=== PATIENT | male | born 1950 | race Caucasian/White ===

== ENCOUNTER → 2016-11-03 | Outpatient (CLI) | payer OTHER ==
[~2016-11-03] MED LIST: BUSPIRONE10 MG PO; CIPROFLOXACIN500 M4 PO; HCTZ-METOPROLOL1 TA2 PO; KLONOPIN0.5 MG PO; LISINOPRIL10 M1 PO; METFORMIN500 MG PO; METRONIDAZOLE500 M1 PO; TRAMADOL HCL50 MG PO; VENLAFAXINE150 MG PO; ZOCOR20 MG PO; ZOFRAN8 M1 PO
== END | disposition home or self-care (01) ==
LOC: US 08:53
DX: Z13.6 Encounter for screening for cardiovascular disorders (principal); I71.4 Abdominal aortic aneurysm, without rupture; E11.9 Type 2 diabetes mellitus without complications; I10 Essential (primary) hypertension

== ENCOUNTER → 2018-01-21 | Outpatient (CLI) | payer OTHER | END | disposition home or self-care (01) | LOC: RAD 12:08 | DX: R06.02 Shortness of breath (principal) ==

== ENCOUNTER 2018-04-11 07:40 | Inpatient (IN) | payer OTHER ==
[~2018-04-11] VITALS: Ht 177.8 cm; Wt 74.5 kg
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
--- NOTE | ~2018-04-11 | PR ---
[place], [place] PROGRESS NOTE NAME: CARMITA BOWMAN II UNIT #: [id number] ROOM: 508 DOCTOR: BROWN MEDINA MD BIRTHDATE: [birth year] DOS: 04/19/2018 CARDIOLOGY PROGRESS NOTE The patient is in room 503, bed 2. SUBJECTIVE: The patient was seen today, 04/19/2018, at his bedside. He is feeling better. He stated that this morning he did have a post-traumatic stress episode, which was associated with tachycardia, but resolved spontaneously. Subsequently, his heart rate returned to a well-controlled level. He denies any fevers or chills. He denies any chest discomfort. The patient's blood cultures have been identified as positive for methicillin-sensitive Staphylococcus aureus. As of this point, the source has not been found. PHYSICAL EXAMINATION: VITAL SIGNS: Today, his pulse was 80 and irregularly irregular. Blood pressure was 101/53. He is afebrile. NECK: Supple. He has no jugular distention. Carotids are full. Sclerae are clear and there are no scleral hemorrhages. His oral mucosa is moist. His tongue is midline. His neck is supple. There is no jugular distention. Carotids are full. LUNGS: Respirations are unlabored. His chest is clear to auscultation and percussion. HEART: Has an irregularly irregular rhythm without murmurs or gallops. ABDOMEN: Soft and normally active. EXTREMITIES: Nailbeds show no subungual hemorrhages. There are no embolic phenomena on his hands. IMPRESSIONS: 1. Newly documented atrial fibrillation with controlled ventricular response. 2. Mild elevation in troponin due to atrial fibrillation and rapid ventricular response with demand ischemia. 3. Traumatic hematoma of the right hip -- improving. 4. Chronic obstructive pulmonary disease. 5. Hypertension. 6. Type 2 diabetes mellitus. 7. Tobacco abuse. 8. Methicillin-sensitive Staphylococcus aureus on blood cultures. The source of this is not apparent. Infectious Disease consultation is pending. PLAN: We will continue his current cardiac medications and await the recommendations of the Infectious Disease specialist. I thank Dr. Schwarz for asking our advice regarding the patient's care. [place], [place] PROGRESS NOTE NAME: CARMITA BOWMAN II UNIT #: [id number] ROOM: 508 DOCTOR: BROWN MEDINA MD BIRTHDATE: [birth year] BROWN MEDINA MD CM:PNTRANS [id number] BROWN MEDINA MD 04/20/18 0619 interface
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
--- NOTE | ~2018-04-11 | PR ---
[place], [place] PROGRESS NOTE NAME: [facility] [id number] UNIT #: [id number] ROOM: 503 DOCTOR: STEFANI SOLIS MD BIRTHDATE: [birth year] DOS: 04/13/2018 SUBJECTIVE: The patient developed atrial fibrillation with rapid ventricular response with a heart rate of 170 beats per minute for which he was given a bolus of Cardizem and then infusion with titration. OBJECTIVE: GENERAL APPEARANCE: The patient is alert and oriented x 3, in no visible distress. VITAL SIGNS: Blood pressure 93/58, heart rate of 76 beats per minute, breathing 20 times per minute, temperature 98 degrees Fahrenheit. HEENT AND NECK: Exam within normal limits. CARDIOVASCULAR SYSTEM: Heart rate is regular in rate and rhythm. S1 and S2 normally audible. LUNGS: Clear to auscultation. ABDOMEN: Soft, nontender. No obvious organomegaly. Bowel sounds are present. EXTREMITIES: Without significant cyanosis or edema. IMPRESSION: 1. Paroxysmal atrial fibrillation with acute atrial fibrillation, now with rapid ventricular response of 170 beats per minute, has reduced now to 70-90 beats per minute, but still the patient's heart rate goes up when he ambulates. This was discussed with his office copy selector. The patient is already anticoagulated with Xarelto. The patient was also given digoxin IV 2 doses and then started on oral digoxin. The patient is still on diltiazem infusion and needs to be converted to oral. This was discussed with Dr. Luna who will take over his cardiology care today. 2. Type 2 diabetes mellitus, being treated with metformin and insulin. 3. Major depression, recurrent, mild, treated with venlafaxine and controlled. 4. Mixed hyperlipidemia, treated with simvastatin. 5. Vitamin D deficiency, replaced with supplements. 6. With a creatinine of 1.5, his metformin needs to be stopped and is being discontinued to decrease the risk of lactic acidosis. STEFANI SOLIS MD CM:PNTRANS [phone] STEFANI SOLIS MD 04/14/18 0334 interface
--- NOTE | ~2018-04-11 | PR ---
[place], [place] PROGRESS NOTE NAME: CARMITA BOWMAN II UNIT #: [id number] ROOM: 503 DOCTOR: BROWN MEDINA MD BIRTHDATE: [birth year] DOS: 04/15/2018 CARDIOLOGY PROGRESS NOTE SUBJECTIVE: The patient was seen at his bedside today, 04/15/2018, for followup of his newly documented atrial fibrillation. His heart remains out of rhythm, but it is controlled and not specifically tachycardic. He denies any palpitations, lightheadedness or syncope. He still has considerable pain in his right hip, but it is getting better. PHYSICAL EXAMINATION: VITAL SIGNS: His pulse is 90 and irregularly irregular. Blood pressure is 100/50. He is afebrile. NECK: Supple. He has no jugular distention. Carotids are full. LUNGS: Respirations are unlabored. Chest is clear. HEART: Has an irregularly irregular rhythm without murmurs or gallops. ABDOMEN: Benign. EXTREMITIES: Showed no edema. IMPRESSION: 1. Newly documented atrial fibrillation with controlled ventricular response. 2. Mild elevation in troponin due to atrial fibrillation, rapid ventricular rate prior to admission. 3. Traumatic hematoma of the right hip -- improving. 4. Chronic obstructive pulmonary disease. 5. Hypertension. 6. Type 2 diabetes mellitus. 7. Tobacco abuse. PLAN: We will continue to manage him with rate control and anticoagulation for the present. No further cardiac workup is planned at this time. His recent stress test did show a fixed defect with normal overall left ventricular systolic function, was a low-risk study. We will continue his current medications and follow him as needed. I thank Dr. Murray for asking our advice regarding his care. [place], [place] PROGRESS NOTE NAME: CARMITA BOWMAN II UNIT #: [id number] ROOM: 503 DOCTOR: BROWN MEDINA MD BIRTHDATE: [birth year] BROWN MEDINA MD CM:PNTRANS [phone] BROWN MEDINA MD 04/16/18207 interface
--- NOTE | ~2018-04-11 | PR ---
[place], [place] PROGRESS NOTE NAME: CARMITA BOWMAN II UNIT #: [id number] ROOM: 508 DOCTOR: MARIA ELENA PLATT MD BIRTHDATE: [birth year] DOS: 04/20/2018 NO DICTATION Maria Elena Platt MD CM:PNTRANS [phone] MARIA ELENA PLATT MD 06/01/18 0546 interface
--- NOTE | ~2018-04-11 | PR ---
[place], [place] PROGRESS NOTE NAME: CARMITA BOWMAN II UNIT #: [id number] ROOM: 503 DOCTOR: MAIA RODRIGUEZ MD BIRTHDATE: [birth year] DOS: 04/18/2018 SUBJECTIVE: The patient is resting comfortably, family members visiting. PHYSICAL EXAMINATION: GENERAL: He is awake and alert and oriented, in no distress. VITAL SIGNS: Graphic trend shows a pressure of 92/65, pulse of 80, respirations 16, temperature 97.6. LUNGS: Diminished breath sounds, clear. HEART: Irregular. ABDOMEN: Obese, soft. EXTREMITIES: Without any edema. LABORATORY DATA: Urine culture shows no bacterial growth. Digoxin level is 0.96. Blood cultures, anaerobic shows gram-positive cocci in pairs and chains. IMAGING DATA: CT of the chest and abdomen does not show any evidence of acute infectious process. ASSESSMENT AND PLAN: 1. Hematoma of the right thigh seems to be improving clinically. It is much less red and less swollen and the size seems to be decreasing. 2. Adult failure to thrive. He was awaiting a placement to [place], but he is reluctant maybe go home with therapy. 3. Bacteremia with gram-positive cocci in pairs and chains, which is an aerobic study, awaiting final report on that. The patient may need a PICC line placement and continued antibiotics as an outpatient once we have the complete sensitivities. 4. Atrial fibrillation with rapid ventricular response, controlled. We should be able to discontinue the Cardizem and place him on p.o. meds. Dr. Conrad following. MAIA RODRIGUEZ MD CM:PNTRANS [phone] MAIA RODRIGUEZ MD 04/18/18 1600 interface
--- NOTE | ~2018-04-11 | PR ---
[place], [place] PROGRESS NOTE [id number] UN[facility] #: [id number] ROOM: 503 DOCTOR: MAIA RODRIGUEZ MD BIRTHDATE: [birth year] DOS: 04/19/2018 SUBJECTIVE: The patient is doing better, does not have any complaints today. OBJECTIVE: VITAL SIGNS: Graphic trend shows a pressure of 109/76, pulse of 105, respirations 18, temperature 97.8. LUNGS: Diminished breath sounds, clear. HEART: Irregular. ABDOMEN: Obese, soft. EXTREMITIES: Without any edema. LABORATORY DATA: Blood culture shows Staph aureus, which is in 2 different bottles, so this most likely is not a contaminant, was a true infection. Urine culture is negative. Chest x-ray negative. CT of the abdomen and pelvis as well as chest were negative. ASSESSMENT AND PLAN: 1. Hematoma of the right hip, resolving. 2. New onset atrial fibrillation. Heart rate controlled, on Xarelto, on Cardizem p.o. as well as metoprolol and therapeutic levels of digoxin. Stress test and echocardiogram was normal. 3. Sepsis with positive blood cultures with Staphylococcus aureus. Did receive vancomycin for several days. Repeat cultures today. The patient should be able to go home on a p.o. Levaquin tomorrow awaiting consultation with ID, so far no source of infection noted. 4. Chronic obstructive pulmonary disease with moderate cigarette smoker. 5. Generalized anxiety disorder, panic attacks with posttraumatic stress disorder. Some of his meds were discontinued because of his metabolic encephalopathy. Restart as needed. MAIA RODRIGUEZ MD CM:PNTRANS [phone] MAIA RODRIGUEZ MD 04/19/18 1101 interface
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
--- NOTE | ~2018-04-11 | EKG ---
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
--- NOTE | ~2018-04-11 | PR ---
[place], [place] PROGRESS NOTE NAME: [facility]MAN [id number] UNIT #: [id number] ROOM: 508 DOCTOR: MAIA RODRIGUEZ MD BIRTHDATE: [birth year] DOS: 04/22/2018 SUBJECTIVE: The patient is doing well, awaiting his SANJIV this morning. He does not have any complaints. OBJECTIVE: VITAL SIGNS: Pressure is 140/90, pulse of 90, respirations 16, temperature 98.3. LUNGS: Clear. HEART: Regular. ABDOMEN: Obese, soft, nontender. EXTREMITIES: Without any edema. Right hip site, decreased swelling and redness. ASSESSMENT AND PLAN: 1. Hematoma of the right hip, improving. 2. New-onset atrial fibrillation converted to sinus rhythm. 3. Bacteremia, Staphylococcus aureus, awaiting a SANJIV this morning, after that is done, the patient should be able to go home on p.o. antibiotics. Plan is to discharge him to home tomorrow. MAIA RODRIGUEZ MD CM:PNTRANS [id number] MAIA RODRIGUEZ MD 04/22/18 1240 interface
--- NOTE | ~2018-04-11 | EKG ---
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
--- NOTE | ~2018-04-11 | PR ---
[place], [place] PROGRESS NOTE NAME: CARMITA BOWMAN II [facility] #: [id number] UNIT #: [id number] ROOM: 508 DOCTOR: BROWN MEDINA MD BIRTHDATE: [birth year] DOS: 04/20/2018 CARDIOLOGY PROGRESS NOTE SUBJECTIVE: The patient was seen at his bedside today, 04/20/2018, for followup of his newly documented atrial fibrillation. He was initially admitted to the hospital on 04/11/2018 after a hip injury. He was noted to have an elevated troponin and while in the hospital did develop atrial fibrillation. This is probably the cause of the elevated troponin. He did develop signs of sepsis in the hospital and blood cultures were positive for methicillin-sensitive Staph aureus. I have discussed his care with his Infectious Disease senior compensation consultant and she has requested that we do a transesophageal echocardiogram to evaluate for the potential of endocarditis. Thus far, the patient has no peripheral findings to suggest endocarditis, but the SANJIV is a much more sensitive way of looking for vegetations. PHYSICAL EXAMINATION: VITAL SIGNS: Today his pulse is 82 and irregularly irregular, blood pressure is 142/80. He is afebrile. He weighs 74.5 kg. NECK: Supple. He has no jugular distention. Carotids are full. LUNGS: Respirations are unlabored. Chest is clear. HEART: Has an irregularly irregular rhythm without murmurs or gallops. ABDOMEN: Soft and normally active. EXTREMITIES: Showed no edema. He has no subungual hemorrhages or peripheral embolic phenomena. LABORATORY DATA: White count is 12,800, hemoglobin is 14.5. Sodium is 136, BUN 15 and creatinine 1.08. Urinalysis from April 12 showed 1+ protein and 3+ blood, but no white cells. IMPRESSION: 1. Newly documented atrial fibrillation with controlled ventricular response. 2. Mild elevation in troponin due to atrial fibrillation and demand ischemia. 3. Traumatic hematoma of the right hip, which is improving. 4. Chronic obstructive pulmonary disease. 5. Hypertension. 6. Type 2 diabetes mellitus. 7. Tobacco abuse. 8. Methicillin-sensitive Staphylococcus aureus on 2 blood cultures. Source is not yet apparent. Infectious Disease consultants have suggested that a SANJIV would be helpful in his ongoing management. PLAN: I did describe the SANJIV to the patient including the risk of sore throat, esophageal injury, vomiting and aspiration, anesthesia reactions, etc. The patient has had endoscopies before and is familiar with the general procedure and agrees to proceed. We will arrange for this to happen on 04/22/2018 with my partner, Dr. Luna since I will be out of town for [address] Schwarz for asking our advice regarding his care. [place], [place] PROGRESS NOTE NAME: CARMITA BOWMAN II UNIT #: [id number] ROOM: 508 DOCTOR: BROWN MEDINA MD BIRTHDATE: [birth year] BROWN MEDINA MD CM:PNTRANS [phone] 7 BROWN MEDINA MD 04/21/18918 interface
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
--- NOTE | ~2018-04-11 | PR ---
[place], [place] PROGRESS NOTE [id number] #: [id number] ROOM: 508 DOCTOR: MAIA RODRIGUEZ MD BIRTHDATE: [birth year] DOS: SUBJECTIVE: The patient states that his legs are hurting because he did too much yesterday walking, but he feels good and is not having any complaints. OBJECTIVE: VITAL SIGNS: Blood pressure is 112/62, pulse of 84, respirations 20, temperature 97.4. LUNGS: Diminished breath sounds, clear. HEART: Regular. ABDOMEN: Soft. EXTREMITIES: Without any edema. ASSESSMENT AND PLAN: 1. Positive blood cultures with Staph aureus. Awaiting SANJIV tomorrow. The patient should be able to go home tomorrow once the SANJIV is done on p.o. antibiotics. 2. Hematoma, right hip decreased swelling. 3. Atrial fibrillation, stable on medications. On long-term use of anticoagulants. 4. Adult failure to thrive. We will get this PT/OT and visiting nurses to see her fevers at home. MAIA RODRIGUEZ MD CM:PNTRANS [phone] MAIA RODRIGUEZ MD 04/21/18 1326 interface
--- NOTE | ~2018-04-11 | PR ---
[place], [place] PROGRESS NOTE NAME: CARMITA BOWMAN II UNIT #: [id number] ROOM: 503 DOCTOR: MAIA RODRIGUEZ MD BIRTHDATE: [birth year] DOS: 04/17/2018 SUBJECTIVE: The patient is resting comfortably, much more awake and alert and oriented this morning, answers questions appropriately. He is no longer confused, but he did develop rapid AFib this morning and was placed back on IV Cardizem. OBJECTIVE: VITAL SIGNS: Graphic trend shows a pressure of 118/82, pulse of 120, respirations 16, and temperature 98.6. LUNGS: Clear. HEART: Irregular, heart rate in the low 90s right now. ABDOMEN: Obese, soft. EXTREMITIES: Without any edema. ASSESSMENT AND PLAN: 1. Atrial fibrillation with rapid ventricular response. IV Cardizem was restarted. 2. Low grade fever with lactic acidosis with possible sepsis pattern. Blood cultures did come back positive for gram-positive cocci in pairs and clusters and 2 cultures. This may be a true infection, may not be a contamination, So I have added vancomycin to the regimen. 3. Change in mental status, metabolic encephalopathy, possibly from sepsis as well as multiple medications, which were all discontinued yesterday, and he is much more lucid today. 4. Adult failure to thrive, awaiting placement when he is much more stable. Discussed with Dr. Conrad. MAIA RODRIGUEZ MD CM:PNTRANS [id number] MAIA RODRIGUEZ MD 04/18/18 1103 interface
--- NOTE | ~2018-04-11 | PR ---
[place], [place] PROGRESS NOTE [facility]: [id number] UN[facility] #: [id number] ROOM: 508 DOCTOR: MAIA RODRIGUEZ MD BIRTHDATE: [birth year] DOS: SUBJECTIVE: The patient is up and about walking around. He does feel good and is not having any new complaints. OBJECTIVE: VITAL SIGNS: Blood pressure is 137/86, pulse of 88, respirations 18, temperature 97.0. LUNGS: Diminished breath sounds. No wheezes, rales, rhonchi heard this morning. HEART: Regular. ABDOMEN: Obese, soft, nontender. EXTREMITIES: Without any edema. ASSESSMENT AND PLAN: 1. Atrial fibrillation, now converted to sinus rhythm this morning. I advised the patient that he could ambulate. 2. Hematoma of the right hip improving, it is much better since admission. There is decreased redness, swelling, and I do not think he needs to have any I and D performed. 3. Positive blood cultures of Staphylococcus aureus, on nafcillin. Awaiting SANJIV. Discussed with Dr. Conrad. If it is negative, the plan is to discharge the patient on Sunday to home on p.o. medications and PT, OT. 4. Posttraumatic stress disorder. Restarted BuSpar and venlafaxine to be continued. Avoid Klonopin if we can. MAIA RODRIGUEZ MD CM:PNTRANS [id number] MAIA RODRIGUEZ MD 04/20/18 1119 interface
--- NOTE | ~2018-04-11 | PR ---
[place], [place] PROGRESS NOTE [id number] #: [id number] ROOM: 503 DOCTOR: STEFANI SOLIS MD BIRTHDATE: [birth year] DOS: 04/15/2018 SUBJECTIVE: The patient continues to feel better. He underwent a cardiac stress test. OBJECTIVE: VITAL SIGNS: Blood pressure 99/53, heart rate 94 beats per minute, breathing 18 times per minute, temperature 98.2 degrees Fahrenheit. GENERAL APPEARANCE: The patient is alert and oriented x 3, in no visible distress. HEENT AND NECK: Exam within normal limits. CARDIOVASCULAR SYSTEM: Heart rate is regular in rate and rhythm. S1 and S2 normally audible. LUNGS: Clear to auscultation. ABDOMEN: Soft, nontender. No obvious organomegaly. Bowel sounds are present. EXTREMITIES: Without significant cyanosis or edema. IMPRESSION: 1. Patient with right hip hematoma and ecchymosis on his left flank area with stable hemoglobin at 13.8. 2. Paroxysmal atrial fibrillation with tachycardia, now improved on digoxin, diltiazem and metoprolol. Heart rates have improved and if he does not develop any significant tachycardia he can be discharged to home tomorrow by Dr. Schwarz. 3. Generalized anxiety disorder, treated and controlled with clonazepam. 4. Major depression, recurrent, treated and controlled with venlafaxine. 5. Mixed hyperlipidemia, treated with simvastatin. 6. Vitamin D deficiency, replaced with supplements. 7. Type 2 diabetes mellitus. Blood sugars are being monitored and treated. Metformin stopped because of creatinine of 1.5. STEFANI SOLIS MD CM:PNTRANS 1539 STEFANI SOLIS MD 04/16/184 interface
--- NOTE | ~2018-04-11 | PR ---
[place], [place] PROGRESS NOTE NAME: [id number] UNIT #: [id number] ROOM: 503 DOCTOR: STEFANI SOLIS MD BIRTHDATE: [birth year] DOS: 04/14/2018 SUBJECTIVE: The patient continues to feel better. OBJECTIVE: GENERAL APPEARANCE: The patient is alert and oriented x 3, in no visible distress. Generalized weakness. VITAL SIGNS: His blood pressure 107/70, heart rate of 82 beats per minute, breathing normally at 18 times per minute, temperature 98.3 degrees Fahrenheit. HEENT AND NECK: Exam within normal limits. CARDIOVASCULAR SYSTEM: Heart rate is regular in rate and rhythm. S1 and S2 normally audible. LUNGS: Clear to auscultation. ABDOMEN: Soft, nontender. No obvious organomegaly. Bowel sounds are present. EXTREMITIES: Right hip hematoma and some ecchymosis over his left flank. IMPRESSION: 1. The patient has hematoma of the right hip and ecchymosis in his left flank. Hemoglobin stable at 13.8. Mild leukocytosis. 2. Type 2 diabetes mellitus. Blood sugars are being monitored and treated. The patient's metformin stopped because of elevation of creatinine to 1.47 to avoid lactic acidosis. 3. Vitamin D deficiency, replaced with supplements. 4. Mixed hyperlipidemia, treated with simvastatin. 5. Major depression, recurrent, mild, treated and controlled with venlafaxine. 6. Paroxysmal atrial fibrillation, heart rates are better controlled, although he still had an episode of tachycardia this morning, Dr. Luna, the micro photographer is following him and he has been kept on digoxin and diltiazem CD now along with metoprolol. 7. Generalized anxiety, controlled with clonazepam. STEFANI SOLIS MD CM:PNTRANS [id number] STEFANI SOLIS MD 04/15/1828 interface
[2018-04-11 07:45] VITALS: BP 103/70
[2018-04-11 08:14] LABS: BASO % 0.1 % (0.0-1.0); EOS % 0.3 % (1.0-4.0); HEMATOCRIT 43.3 % (42.0-52.0); HEMOGLOBIN 15.3 g/dl (14.0-18.0); LYMPH # 0.9 10*3/uL (1.3-4.4); LYMPH % 6.6 % (27.0-41.0); MEAN CELL VOLUME 92.5 fl (80.0-94.0); MEAN CORPUSCULAR HGB 32.7 pg (27.0-31.0); MEAN CORPUSCULAR HGB CONC 35.3 g/dl (33.0-37.0); MEAN PLATELET VOLUME 9.6 fl (9.6-12.3); MONO # 1.3 10*3/uL (0.1-1.0); MONO % 9.3 % (3.0-9.0); NEUT # 11.5 10*3/uL (2.3-7.9); NEUT % 83.3 % (47.0-73.0); PLATELET COUNT AUTOMATED 254 10*3/uL (130-400); RED BLOOD COUNT 4.68 10*6/uL (4.50-5.90); WHITE BLOOD COUNT 13.8 10*3/uL (4.8-10.8)
[2018-04-11 08:26] LABS: ACT PARTIAL THROMBO TIME 26.5 SECONDS (20.8-31.5); INTERNATIONAL NORM RATIO 1.1 (2.0-3.5)
[2018-04-11 08:37] LABS: CREATININE 1.53 mg/dL (0.70-1.30); POTASSIUM 4.6 mmol/L (3.5-5.1)
[2018-04-11 08:41] LABS: TROPONIN I 0.063 ng/ml (<0.045)
[2018-04-11 09:15] VITALS: BP 97/62
--- NOTE | 2018-04-11 09:16 | NUR ---
REDNESS AND SOME EDEMA NON PITTING TO THE RIGHT HIP. STATES SLEPT ON IT FOR 3 HOURS LAST WEEK AND PAINS HAVE NOT GOT BETTER. PAIN TO TOUCH RADIATIND DOWN HIS LEFT RIGHT. CAP REFILL LESS THAN THREE SECONDS. WITNESSED GAIT STEADY TO ER COT FROM EMS COT. PT TOLD DR THAT HE HAS BEEN SOB AT HOME SINCE HIS PAIN. LS CLEAR AND DIMINSHED. NO DISTRESS NOTED. ELEVATED TWAVES ON THE MONITOR RADIAL HR 67. CALL MELGOZA IN REACH. BED LOCKED AND LOW. SIDE RALES UP TIMES TWO. NO DISTRESS NOTED.
--- NOTE | 2018-04-11 10:00 | NUR ---
A 67, admitted to 5E, under the services of MAIA Santos MD with a diagnosis of INABILITY TO AMBULATE, SOB, TRAUMATIC HEMATOMA R HIP, ELEVATED TROP/D-DIMER. Chief complaint is PAIN R HIP, SOB. Patient arrived via stretcher from ER. Monitor applied. Initial assessment completed. Vital signs taken and recorded. MAIA SANTOS MD notified of admission to the unit. Orders received. See assessment for past medical history, medications and allergies. Patient and/or family oriented to unit. [address] visitation policy reviewed. Clothing/patient valuable form completed. YOSELYN GOMEZ
[2018-04-11 10:15] VITALS: BP 116/83
[2018-04-11] MEDS ORDERED: MEGA RED PO (11:03)
[2018-04-11] MEDS ORDERED: ULTRAM50 MG PO (11:04)
[2018-04-11] MEDS ORDERED: VIT D3 PO (11:05)
[2018-04-11] MEDS ORDERED: ASPIRIN81 M1 PO (11:06)
[2018-04-11] MEDS ORDERED: SYMB80 INH (11:07)
--- NOTE | 2018-04-11 13:57 | NUR ---
MEDICATED WITH IV DILAUDID ORDERED PER PT REQUEST FOR C/O PAIN TO R POSTERIOR HIP FROM HEMATOMA RATED 5/10.
--- NOTE | 2018-04-11 15:00 | NUR ---
MEDICATION EFFECTIVE FOR PAIN.
[2018-04-11 16:00] VITALS: BP 129/81
[2018-04-11] MEDS ORDERED: HYDROCHLOROTHIA50 M1 PO (16:38)
--- NOTE | 2018-04-11 18:38 | NUR ---
MEDICATED WITH PO ULTRAM ORDERED PER PT REQUEST FOR C/O R POSTERIOR HIP PAIN RATED 4/10.
[2018-04-11 20:00] VITALS: BP 123/69
--- NOTE | 2018-04-11 21:55 | NUR ---
PATIENT MEDICATED WITH DILAUDID FOR COMPLAINTS OF RIGHT HIP PAIN. WILL CONTINUE TO MONITOR. CALL LIGHT IN REACH.
[2018-04-12] VITALS: BP 125/80
[2018-04-12 06:23] LABS: BASO % 0.2 % (0.0-1.0); HEMATOCRIT 42.1 % (42.0-52.0); HEMOGLOBIN 13.8 g/dl (14.0-18.0); LYMPH # 0.8 10*3/uL (1.3-4.4); LYMPH % 6.4 % (27.0-41.0); MEAN CORPUSCULAR HGB 31.9 pg (27.0-31.0); MEAN CORPUSCULAR HGB CONC 32.8 g/dl (33.0-37.0); MEAN PLATELET VOLUME 9.9 fl (9.6-12.3); MONO # 0.5 10*3/uL (0.1-1.0); NEUT # 11.7 10*3/uL (2.3-7.9); NEUT % 88.6 % (47.0-73.0); PLATELET COUNT AUTOMATED 238 10*3/uL (130-400); RED BLOOD COUNT 4.33 10*6/uL (4.50-5.90); WHITE BLOOD COUNT 13.1 10*3/uL (4.8-10.8)
[2018-04-12 06:24] LABS: MEAN CELL VOLUME 97.2 fl (80.0-94.0)
[2018-04-12 06:32] LABS: CREATININE 1.47 mg/dL (0.70-1.30); POTASSIUM 4.3 mmol/L (3.5-5.1)
--- NOTE | 2018-04-12 07:10 | NUR ---
PT AWAKE AND RESTING IN BED. PT STATES THAT HE HAS NO COMPLAINTS OF PAIN AT THIS TIME AND WAS WAITING ON BREAKFAST. CALL LIGHT WITHIN REACH, WILL CONTINUE TO MONITOR.
--- NOTE | 2018-04-12 07:52 | NUR ---
24 HR CHART CHECK COMPLETE.
[2018-04-12 08:00] VITALS: BP 112/66
--- NOTE | 2018-04-12 09:00 | NUR ---
Sheet Tailer in to talk to patient. Patient states lives at home with his . There are 18 steps in the home. Physician: Dr. Therese Schwarz Pharmacy: [facility] health services: none Patient's level of ADLs: INDEPENDENT Patient has working utilities: yes DME: nebulizer Follow-up physician's appointment after d/c: he prefers to make his own follow up appt after discharge Does patient want to access PORTAL?: no Discharge plan discussed with patient. He lives at home with his . He is independent in his ADLs and ambulation. Discussed home health care services and he denies any home needs at this time. When medically stable he will be discharged to home. CHAPINCITO HUERTA
--- NOTE | 2018-04-12 09:30 | NUR ---
DR MEDINA NOTIFIED OF EKG SHOWING NEW ONSET AFIB. HE WILL ADDRESS IT LATER AFTER THE METOPROLOL HAS TAKEN AFFECT.
--- NOTE | 2018-04-12 10:34 | NUR ---
LEAVING VIA WHEELCHAIR FOR CARDIAC REHAB.
--- NOTE | 2018-04-12 11:30 | NUR ---
INFORMED SIGNED CONSENT OBTAINED FOR LEXISCAN STRESS TEST [facility] DR MEDINA. RESTING EKG AFIB WITH PVC, Q WAVE IN -V4 HR 133 BP 168/78. PT COMPLETED ONE MINUTE OF A LEXISCAN PROTOCOL WITH PT RECEIVING LEXISCAN 0.4MG IV OVER 10 SECONDS. OCCASSIONAL PVC'S WITH COUPLETS SEEN. NO ST CHANGES. PT C/O A WARM FEELING WITH INFUSION. LAST RECOVERY HR OF 130 BP 134/76. PT IN STABLE CONDITION. AWAITNG NUCLEAR IMAGES.
--- NOTE | 2018-04-12 13:00 | NUR ---
PT RETURNED TO THE FLOOR FROM CARDIAC STRESS TEST.
--- NOTE | 2018-04-12 13:06 | NUR ---
PT ADMINISTERED PRN DILAUDID FOR COMPLAINTS OF PAIN 11/26. WILL CONTINUE TO MONITOR.
--- NOTE | 2018-04-12 13:56 | NUR ---
PT STATES THAT THE PRN DILAUDID HAS HELPED WITH HIS PAIN AND HE NOW RATES IT A 1/10. WILL CONTINUE TO MONITOR
--- NOTE | 2018-04-12 15:50 | NUR ---
DR SOLIS NOTIFIED OF INCREASING HR INTO THE 170s/AFIB, NEW ORDERS RECEIVED.
[2018-04-12 16:00] VITALS: BP 111/75; BP 98/64
--- NOTE | 2018-04-12 16:28 | NUR ---
PHYSICIAN WAS NOTIFIED OF DR. CALDWELL CONSULT. RESPONSE OF NOTIFICATION WAS TO CONTINUE CURRENT MEDICATIONS HE HAS JUST SEEN HER AT [facility]. LEÓN SELLERS
--- NOTE | 2018-04-12 16:29 | NUR ---
DR. CALDWELL CONSULTED FOR CHF AND PROLONGED QT INTERVAL. DR. CALDWELL STATES THAT HE DOES NOT HAVE ANY FURTHER SUGGESTIONS FOR THIS PATIENT AT THIS TIME AND THAT SHE IS TO CONTINUE HER CURRENT MEDICATIONS HE HAS JUST SEEN HER YESTERDAY. DR. CALDWELL ALSO STATED THAT FROM HIS STAND POINT THIS PATIENT IS CLEARED TO GO TO [facility] AT ANYTIME.
[2018-04-12 18:01] VITALS: BP 117/59
[2018-04-12 20:00] VITALS: BP 106/70
[2018-04-12 20:54] LABS: BILIRUBIN NEGATIVE (NEGATIVE); BLOOD 3+ (NEGATIVE); CLARITY SL CLOUDY (CLEAR); COLOR YELLOW (YELLOW); GLUCOSE 2+ (NEGATIVE); KETONE NEGATIVE (NEGATIVE); LEUKO ESTERASE NEGATIVE (NEGATIVE); NITRITE NEGATIVE (NEGATIVE); PH 5.5 (5.0-9.0); SPECIFIC GRAVITY >= 1.030 (1.005-1.030); UROBILINOGEN 0.2 E.U./dl (0.2-1.0)
[2018-04-12 20:59] LABS: BACTERIA 2+; WBC 0-2 wbc/hpf (0-5)
[2018-04-12 21:00] LABS: CALCIUM OXALATE CRYSTALS TRACE; COARSE GRANULAR CAST 0-2; MUCOUS TRACE
--- NOTE | 2018-04-12 21:56 | NUR ---
PATIENT MEDICATED WITH DILAUDID FOR COMPLAINTS OF RIGHT HIP/BUTTOCKS PAIN. WILL CONTINUE TO MONITOR. CALL LIGHT IN REACH.
[2018-04-12 22:00] VITALS: BP 110/68
[2018-04-13] VITALS: BP 107/69
--- NOTE | 2018-04-13 01:15 | NUR ---
DR. SOLIS NOTIFIED OF PATIENT'S HEART RATE RANGING FROM 60'S-80'S AND STILL IN A-FIB. NEW ORDER FOR CARDIZEM CD 120MG NOW AND THEN STOP CARDIZEM DRIP ONE HOUR AFTER PO CARDIZEM GIVEN.
--- NOTE | 2018-04-13 02:35 | NUR ---
CARDIZEM DRIP STOPPED AT THIS TIME.
[2018-04-13 04:00] VITALS: BP 107/69
[2018-04-13 08:00] VITALS: BP 110/78
[2018-04-13 12:00] VITALS: BP 95/82
[2018-04-13 16:00] VITALS: BP 93/58
--- NOTE | 2018-04-13 18:00 | NUR ---
DR QUESADA IN TO SEE PT. PER HIS REQUEST BILATERAL HIP BRUISES OUTLINED WITH MARKER.
[2018-04-13 20:00] VITALS: BP 103/73; BP 106/74
--- NOTE | 2018-04-13 23:32 | NUR ---
24 HR chart check completed.
[2018-04-14] VITALS: BP 108/56
--- NOTE | 2018-04-14 04:30 | NUR ---
PATIENT PULLED IV OUT. NEW IV INSERTED PER PROTOCOL.
[2018-04-14 08:00] VITALS: BP 98/62
--- NOTE | 2018-04-14 08:00 | NUR ---
Patient resting quietly with no c/o discomfort. Respirations easy and regular. Marker outlines to bilateral hips are intact with no changes noted. IVF infusing per orders. Vital signs stable. No overt distress. MILEY GERMAN R
[2018-04-14 12:00] VITALS: BP 100/68
[2018-04-14 16:00] VITALS: BP 107/70
[2018-04-14 16:32] LABS: BASO % 0.2 % (0.0-1.0); EOS # 0.1 10*3/uL (0.0-0.4); EOS % 0.8 % (1.0-4.0); HEMATOCRIT 40.9 % (42.0-52.0); HEMOGLOBIN 13.8 g/dl (14.0-18.0); LYMPH # 1.5 10*3/uL (1.3-4.4); LYMPH % 11.7 % (27.0-41.0); MEAN CELL VOLUME 96.5 fl (80.0-94.0); MEAN CORPUSCULAR HGB 32.5 pg (27.0-31.0); MEAN CORPUSCULAR HGB CONC 33.7 g/dl (33.0-37.0); MEAN PLATELET VOLUME 9.4 fl (9.6-12.3); NEUT # 10.1 10*3/uL (2.3-7.9); NEUT % 78.1 % (47.0-73.0); PLATELET COUNT AUTOMATED 247 10*3/uL (130-400); RED BLOOD COUNT 4.24 10*6/uL (4.50-5.90); RED CELL DISTRI WIDTH 13.3 % (0-14.5)
[2018-04-14 20:00] VITALS: BP 110/71; BP 118/68; BP 138/78
--- NOTE | 2018-04-14 20:44 | NUR ---
24 HR chart check completed.
[2018-04-15] VITALS: BP 100/72
--- NOTE | 2018-04-15 02:46 | NUR ---
PATIENT REQUESTING MEDICATION FOR RIGHT HIP PAIN. TRAMADOL ADMINISTERED PRESCRIBED. WILL MONITOR FOR EFFECTIVENESS.
--- NOTE | 2018-04-15 03:46 | NUR ---
PATIENT RESTING QUIETLY WITH EYES CLOSED. RESPERS EASY AND UNLABORED. CALL MELGOZA WITHIN REACH WILL MONITOR.
[2018-04-15 08:00] VITALS: BP 112/64
--- NOTE | 2018-04-15 09:00 | NUR ---
Architectural Wood Model Maker in to see patient. Discussed home needs and he requested a walker for home. Notified Dr. Murray. When medically stable he will be discharged to home.
--- NOTE | 2018-04-15 11:56 | NUR ---
Daughter requested assistance with household items. [facility] Resource Guide pamphlet given to patient.
[2018-04-15 12:00] VITALS: BP 99/53
--- NOTE | 2018-04-15 14:59 | NUR ---
Faxed walker prescription to [facility].
[2018-04-15 16:00] VITALS: BP 101/73
[2018-04-15 20:00] VITALS: BP 117/72; BP 120/72
--- NOTE | 2018-04-15 20:00 | NUR ---
DAUGHTER EXPRESSING CONCERN ABOUT FATHER GOING HOME, STATING THAT HE HAS BEEN HAVING A HARD TIME GETTING AROUND. WOULD LIKE PT TO WORK WITH HIM AND PT AT HOME IS POSSIBLE.
--- NOTE | 2018-04-15 20:20 | NUR ---
PATIENT REQUESTING PAIN MEDICATION FOR RIGHT HIP PAIN RATED 8/10 ON 0/10 SCALE. DILAUDID ADMINISTERED PRESCRIBED. WILL MONITOR FOR EFFECTIVENESS.
--- NOTE | 2018-04-15 20:50 | NUR ---
PATIENT STATES THAT RIGHT HIP PAIN IS 5/10 AFTER ADMINISTRATION OF DILAUDID. WILL MONITOR.
--- NOTE | 2018-04-15 23:00 | NUR ---
REPORT OBTAINED FROM RICHARD RYDER. PT IS RESTING IN BED AT THIS TIME WITH HIS EYES CLOSED. THERE ARE NO SIGNS OR SYMPTOMS OF PAIN OR DISCOMFORT NOTED. NORMAL SALINE IS RUNNING INTO LT ARM IV @ 60ML/HR WITH A CREDIT OF 200mL LEFT. RESPIRATIONS ARE EASY AND UNLABORED. BED IS LOCKED AND IN LOWEST POSITION, CALL LIGHT IS WITHIN REACH.
[2018-04-16] VITALS: BP 124/84
--- NOTE | 2018-04-16 06:37 | NUR ---
PA APPROACHED RN REGARDING PT ON LAYING ON THE FLOOR IN HALLWAY. RN TO SEE PT. PT STATES HE LOWERED HIMSELF TO THE GROUND AND WAS IN THE HALLWAY BECAUSE IT WAS TOO HOT IN HIS ROOM. HE DENIES FALLING AND/OR ANY INJURIES. PT ASSISTED TO BACK TO BED. ASSESSMENT COMPLETE, VITAL SIGNS STABLE. PT IS ALERT AND ORIENTED X3. DR. SOLIS NOTIFIED OF SITUATION, NO NEW ORDERS RECIEVED. YELLOW NON SKID SOCKS APPLIED, FALL RISK BAND APPLIED, BED ALARM ON. WILL CONTINUE TO MONITOR, CALL LIGHT WITHIN REACH.
[2018-04-16 07:45] VITALS: BP 106/72
[2018-04-16 08:45] VITALS: BP 126/69
--- NOTE | 2018-04-16 08:59 | NUR ---
MEDICATED WITH PRN IV DILAUDID FOR RIGHT HIP HEMATOMA AREA PAIN.
--- NOTE | 2018-04-16 09:00 | NUR ---
Social Media Senior Associate in to see patient. No new needs or request at this time. He denies any home needs. Informed walker prescription was sent to [facility]. When medically stable he will be discharged to home.
--- NOTE | 2018-04-16 09:26 | NUR ---
PRN IV DILAUDID EFFECTIVE FOR PAIN, PER PATIENT.
--- NOTE | 2018-04-16 10:02 | NUR ---
0845 Pulse rate 111 bpm reported to RN Martin and patient reported R hip pain 9 on 0-10 scale also reported to Martin RN. Will continue to monitor. Call light in reach, bed in low, clear pathways, bed alarm on. [address]
--- NOTE | 2018-04-16 10:37 | NUR ---
PATIENT ASSISTED TO STANDING POSITION TO USE URINAL, HAVING MUCH PAIN WITH MOVEMENT TO THE RIGHT HIP.
--- NOTE | 2018-04-16 10:45 | NUR ---
MEDICATED WITH PRN PO ULTRAM FOR RIGHT HIP PAIN.
[2018-04-16 11:50] VITALS: BP 113/70
--- NOTE | 2018-04-16 11:56 | NUR ---
PRN PO ULTRAM EFFECTIVE, PER PATIENT.
--- NOTE | 2018-04-16 13:37 | NUR ---
HR CURRENTLY AFIB/IRREGULAR RATE 70'S WITH FREQUENT 1-2 SECOND PAUSES. PATIENT REMAINS DROWSY BUT ORIENTED, REPORTS NO SYMPTOMS.
--- NOTE | 2018-04-16 14:29 | NUR ---
Discussed with patient short term SNF as Dr. Schwarz requested. His is at the bedside and patient and agree on SNF and would like patient to go to [facility] as that is where the works. Notified associate financial planner.
--- NOTE | 2018-04-16 14:45 | NUR ---
Patient requesting referral to the [facility], contacted facility and faxed initial referral. Patient unable to go to [facility] due to insurance being out of network. Only facility in network with [facility] advantage is [facility] in [place]. Notified CM Lucy muniz.
--- NOTE | 2018-04-16 14:57 | NUR ---
[facility] is out of network with patient's insurance. Spoke to patient and who is at the bedside and informed them Berry Vicente only pays at [facility] in [place]. They are agreeable. naval surface fire support planner notified.
--- NOTE | 2018-04-16 15:56 | NUR ---
Discussed with and daughter who are at the bedside regarding SNF at [facility]. Informed PT and OT evals will be completed tomorrow and a precert will have to be started. It could be or Sunday. , Noris, home phone # [phone] and cell # [phone].
[2018-04-16 16:00] VITALS: BP 124/54
[2018-04-16 20:00] VITALS: BP 94/57
--- NOTE | 2018-04-16 20:00 | NUR ---
PT RESTING IN BED DURING BEDSIDE SHIFT REPORT. FAMILY AT BEDSIDE. FAMILY STATES THAT PT HAS BEEN THIS WAY FOR SOME TIME. PT PALE, DIAPHORETIC, SKIN COOL TO TOUCH. BUE TWITCHING. PT LETHARGIC. DIFF TO AROUSE BUT DOES SO TO VERBAL STIMULI AND IS ALERT AND ORIENTED. BS 339. EXP WHEEZING NOTED W/POOR AIR EXCHANGE. SAT 90-93% RA. ON APPLIED VIA NC AT 2LPM. DR. RODRIGUEZ NOTIFIED W/N.O. RCVD FOR STAT ABG, CBC, BMP. WILL MONITOR PT CLOSELY. FAMILY REMAINS AT BEDSIDE.
[2018-04-16 20:27] LABS: ABG BASE EXCESS -0.3 mmol/L (-2.0-2.0); ABG HCO3 23.1 mmol/l (22-26); ABG O2 SATURATION 97.5 % (95-97); ARTERIAL BLOOD GAS PCO2 37.6 mmHg (35-45); ARTERIAL BLOOD GAS PH 7.411 (7.35-7.45); ARTERIAL BLOOD GAS PO2 89.6 mmHg (80-90)
[2018-04-16 20:31] LABS: BASO % 0.3 % (0.0-1.0); EOS # 0.1 10*3/uL (0.0-0.4); EOS % 0.8 % (1.0-4.0); HEMATOCRIT 38.8 % (42.0-52.0); HEMOGLOBIN 13.2 g/dl (14.0-18.0); LYMPH % 8.4 % (27.0-41.0); MEAN CELL VOLUME 95.6 fl (80.0-94.0); MEAN CORPUSCULAR HGB 32.5 pg (27.0-31.0); MEAN PLATELET VOLUME 9.4 fl (9.6-12.3); MONO % 8.3 % (3.0-9.0); NEUT # 9.6 10*3/uL (2.3-7.9); NEUT % 80.3 % (47.0-73.0); PLATELET COUNT AUTOMATED 264 10*3/uL (130-400); RED BLOOD COUNT 4.06 10*6/uL (4.50-5.90); RED CELL DISTRI WIDTH 13.6 % (0-14.5); WHITE BLOOD COUNT 11.9 10*3/uL (4.8-10.8)
[2018-04-16 20:46] LABS: BUN 18 mg/dl (7-24); CHLORIDE 98 mmol/L (98-107); CREATININE 1.12 mg/dL (0.70-1.30); SODIUM 132 mmol/L (136-145)
--- NOTE | 2018-04-16 21:00 | NUR ---
PT AWAKE IN BED AT THIS TIME. PT NO LONGER DIAPHORETIC OR SOB. COLOR IMPROVED. FAMILY NOTIFIED OF LAB RESULTS. WILL CONTINUE TO MONITOR PT. PT VOIDED IN URINAL. URINE MEDIUM YELLOW URINE. CALL LIGHT IN REACH.
--- NOTE | 2018-04-16 22:10 | NUR ---
DR. RODRIGUEZ CALLED FOR LAB RESULTS. LABS REVIEWED. NO N.O. RCVD AT THIS TIME.
[2018-04-17] VITALS (8 sets, daily range): BP systolic 98–148; BP diastolic 62–82
--- NOTE | 2018-04-17 | NUR ---
PT RESTING QUIETLY IN BED. ASSISTED TO STAND TO URINATE IN URINAL. PT SHAKY BUT OTHERWISE DENIES ANY C/O. NO FURTHER COOL/CLAMMY SKIN. HR IN 90'S, AFIB ON CM. ASSISTED BACK TO BED. CALL LIGHT IN REACH. BED IN LOW POSITION W/WHEELS LOCKED AND ALARM ON.
[2018-04-17 06:42] LABS: BASO % 0.2 % (0.0-1.0); EOS # 0.1 10*3/uL (0.0-0.4); EOS % 0.8 % (1.0-4.0); HEMATOCRIT 41.7 % (42.0-52.0); HEMOGLOBIN 13.7 g/dl (14.0-18.0); LYMPH # 0.7 10*3/uL (1.3-4.4); LYMPH % 7.8 % (27.0-41.0); MEAN CELL VOLUME 96.5 fl (80.0-94.0); MEAN CORPUSCULAR HGB 31.7 pg (27.0-31.0); MEAN CORPUSCULAR HGB CONC 32.9 g/dl (33.0-37.0); MEAN PLATELET VOLUME 9.5 fl (9.6-12.3); MONO # 0.6 10*3/uL (0.1-1.0); MONO % 6.5 % (3.0-9.0); NEUT # 7.9 10*3/uL (2.3-7.9); NEUT % 83.1 % (47.0-73.0); PLATELET COUNT AUTOMATED 269 10*3/uL (130-400); RED BLOOD COUNT 4.32 10*6/uL (4.50-5.90); RED CELL DISTRI WIDTH 13.5 % (0-14.5); WHITE BLOOD COUNT 9.5 10*3/uL (4.8-10.8)
--- NOTE | 2018-04-17 06:50 | NUR ---
IV started LALI with #22 angiocath after 0 attempts. The IV site was prepped with Chloraprep. Heparin lock attached. Sterile dressing applied. Patient tolerated precedure well. Procedure performed according to [facility] policy & procedure. RADHA DELCID
[2018-04-17 06:56] LABS: ALBUMIN 2.3 gm/dl (3.1-4.5); ALKALINE PHOSPHATASE 98 U/L (45-117); BUN 15 mg/dl (7-24); CHLORIDE 99 mmol/L (98-107); CREATININE 0.94 mg/dL (0.70-1.30); POTASSIUM 3.9 mmol/L (3.5-5.1); SGOT/AST 27 IU/L (3-35); SGPT/ALT 38 U/L (12-78); SODIUM 135 mmol/L (136-145); TOTAL PROTEIN 6.6 gm/dL (6.4-8.2)
--- NOTE | 2018-04-17 07:03 | NUR ---
CARADIZEM GTT INITIATED AT THIS TIME.
[2018-04-17 07:06] LABS: DIGOXIN 1.03 ng/ml (0.8-2.0)
--- NOTE | 2018-04-17 08:08 | NUR ---
24 HR CHART CHECK COMPLETE
--- NOTE | 2018-04-17 08:15 | NUR ---
DAUGHTER, JERALD PHONED TO GIVE UPDATE ON PT. MSG LEFT TO CALL HOSPITAL.
--- NOTE | 2018-04-17 08:40 | NUR ---
PHYSICAL THERAPY PAtient evaluated on 5, full evaluation to follow. Continue with PT as per plan of care with fall, c/o severe right buttock pain and acute debility precautions. will requrie SNF. PAtient is high complexity via chart review. tests and evaluation:93789. Thank you for this referral. Marilynn Fuchs,PT
--- NOTE | 2018-04-17 08:44 | NUR ---
Occupational Therapy evaluation completed on 5 with full eval to follow. Precautions include right hip hematoma, severe pain, assist w transfers and ADls, fall risk; bed alarm. Patient is moderate complexity level 03049 via chart review, testing and evalaution. Recommend OT per POC and SNF to enable return home at independent level. Thank you for this referral. Kenyatta Main OTr/L
--- NOTE | 2018-04-17 09:00 | NUR ---
Behavioral Health Tech in to see patient. No new needs or request at this time. When medically stable and precert is obtained he will be discharged to [facility]. digital media planner following.
--- NOTE | 2018-04-17 10:15 | NUR ---
LAB WITH CRITICAL BLOOD CULTURE RESULTS. CALLED DR RODRIGUEZ TO INFORM HER. ORDERS RECEIVED
--- NOTE | 2018-04-17 10:44 | NUR ---
PTS HEART RATE REMAINS 115-130 WITH CARDIZEM AT 10 ML/HR. INCREASED RATE TO 15 ML/HR. BP IS 130/80 MANUAL. WILL CONTINUE TO MONITOR
--- NOTE | 2018-04-17 11:31 | NUR ---
Patient agreeable to snf placement at the [facility] in [facility]. Contacted facility and faxed referral; will require precert.
--- NOTE | 2018-04-17 12:03 | NUR ---
[facility] returned call and stated they are unable to accept this patient, they have no available beds until late next week. Will follow.
--- NOTE | 2018-04-17 12:34 | NUR ---
Spoke to patient and who is at the bedside regarding [facility] being full, [facility] is full, and [facility] in [place] had openings. They are both agreeable to [facility]. works MWF and is hoping for a discharge on Sunday so she can be there with him. principal planner notified.
--- NOTE | 2018-04-17 12:55 | NUR ---
Contacted [facility] facility and faxed referral; waiting on review/acceptance.
[2018-04-18] VITALS (11 sets, daily range): BP systolic 92–125; BP diastolic 56–80
--- NOTE | 2018-04-18 04:53 | NUR ---
24 HR chart check completed.
--- NOTE | 2018-04-18 05:54 | NUR ---
TYLENOL GIVEN PER ORDER FOR PAIN RIGHT HIP AREA.
--- NOTE | 2018-04-18 06:50 | NUR ---
TYLENOL BECOMING EFFECTIVE FOR PAIN IN RIGHT HIP.
--- NOTE | 2018-04-18 08:19 | NUR ---
24 HR CHART CHECKS COMPLETE
--- NOTE | 2018-04-18 09:00 | NUR ---
Surgical Specialist in to see patient. Daughter is at the bedside. No new needs or request at this time. Discussed referral made to [facility] for short term SNF and all are agreeable. enterprise resource planner following. When medically stable and accepted he will bed discharged to [facility].
--- NOTE | 2018-04-18 10:03 | NUR ---
OT NOTE Pt was seen this A.M. 1:1 for 13 minute OT session. Upon arrival pt was supine in bed, pt identified by name and . Pt had reports of 8.5/10 R hip pain and presented to therapy with continous 2L-O2 via NC and IV treatment which he remained on throughout entire session. Pt's nurse Kellen had reports of elevated heart rate stating "he is okay to be treated just take it easy." At rest pt's heart rate was 88 bpm. Pt transferred supine to sit EOB with SBA. Pt completed multiple sit to stand transfers from bed level with CGA and use of w/w for UE support. Challenged pt's static/dynamic standing tolerance needed for increased I in self care tasks and functional transfers. First attempt completed while using w/w for UE support, pt was able to tolerate aprox 3 minutes before sitting due to fatigue. Second attempt made without UE support to challenged pt's dynamic standing tolerance and pt was able to tolerate aprox 2 minutes of unsupported stands. Educated pt on breathing techniques throughout to avoid SOB. Pt had fair carry over throughout session. Pt transferred back into bed sit to supine with SBA where he was left with call light in hand, tray table in place, and bed alarm activated for safety. Continue with rec D/C plan to SNF. STANFORD Voss
--- NOTE | 2018-04-18 12:36 | NUR ---
PHYSICAL THERAPY Patient presented to therapy in supine with 2 liters of spO2 via nasal canula. Patient had report of moderate pain in the R HIP/BUTOCK. Patient was identified by name and . Patient performed supine to sitting EOB transfer with SBA. Patient transferred STS with MIN A X 1. Patient performed standing tolerance at W/W AND THEN WITHOUT W/W for 3 minutes and 2 minutes respectively with SBA. Patient unable to ambulate due to R HIP PAIN. Patient then sat on EOB and performed seated bilateral LE THER EX 2 x 10 reps EACH in all planes of movement for strengthening the LEs in order to improve patient's functional mobility. Patient transferred back to supine in bed with CGA. Patient was left in supine position with head of bed elevated, call light within reach, and bed alarm activated. Patient was connected to wall outlet with 2 liters of spO2. Patient was 1:1 with this KEY FILER for 20 minutes total. YADIRA PORRAS KEY FILER
--- NOTE | 2018-04-18 14:58 | NUR ---
Spoke to regarding discharge planning. She is looking to see if she can become his aide at home. Information given for [facility]. The patient wants to go home with if she is able to be his paid aide and have home health care services. Instructed to let CM know which way they choose to go and verbalized an understanding.
--- NOTE | 2018-04-18 15:10 | NUR ---
Patient has received auth for [facility] in [place]. Patient is ok to go when medically stable for discharge. Notified Lucy software project manager.
--- NOTE | 2018-04-18 19:03 | NUR ---
CALLED ANSWERING SERVICE REGARDING NEW PT CONSULT FOR DR NELSON. WAITING 911 OPERATOR BACK
--- NOTE | 2018-04-18 23:56 | NUR ---
PATIENT REQUESTED AND RECIEVED PRN TYLENOL FOR HIP PAIN RATED AT A 7. WILL CONTINUE TO MONITOR FOR EFFECTIVENESS.
[2018-04-19] VITALS: BP 109/76
--- NOTE | 2018-04-19 00:30 | NUR ---
PATIENT SLEEPING. PRN TYLENOL CONSIDERED EFFECTIVE.
--- NOTE | 2018-04-19 07:38 | NUR ---
CONTACTED DR. RODRIGUEZ REGARDING + BLOOD CULTURES, NO NEW ORDERS AT THIS TIME.
--- NOTE | 2018-04-19 07:48 | NUR ---
pt resting in bed. no distress noted. will monitor
[2018-04-19 08:00] VITALS: BP 116/70
--- NOTE | 2018-04-19 09:00 | NUR ---
spoke with dr jackson regarding pt hr 100-130s no new orders at this time
--- NOTE | 2018-04-19 09:00 | NUR ---
Operating Room Surgical Technologist in to see patient. Discussed home health care services and he is agreeable. When given a list of agencies he chose [facility] as it is [facility] connected. When medically stable he will be discharged to home with [facility] home health services.
--- NOTE | 2018-04-19 09:08 | NUR ---
OT NOTE Attempted to see pt this A.M. for OT session and upon arrival pt's nurse Tracy had reported that pt's heart rate was elevated at this time requesting to hold pt. No treatment provided at this time. Will continue with POC as able. LISA Voss/Stevan
--- NOTE | 2018-04-19 09:26 | NUR ---
Spoke to Grace garza [place], , regarding home health care nurse and PT. Faxed referral. Start of care will be Sunday.
--- NOTE | 2018-04-19 09:34 | NUR ---
PHYSICAL THERAPY Patient reports PTSD symptoms and related tremors with anxiety. Patient is unable to participate in therapy at this time. Will check back later. YADIRA PORRAS METALS ANALYST
--- NOTE | 2018-04-19 09:34 | NUR ---
Spoke to Jose Alfredo at [facility], , regarding walker. Walker will be delivered today.
--- NOTE | 2018-04-19 09:40 | NUR ---
Spoke to patient regarding [facility] bringing his walker today to the hospital and David will see him on Sunday.
--- NOTE | 2018-04-19 09:40 | NUR ---
Spoke to patient regarding [facility] bringing his wheelchair today to the hospital and David will see him on Sunday.
--- NOTE | 2018-04-19 11:24 | NUR ---
Spoke to [facility]. Services of a nurse and PT will start on Sunday. Discussed with and informed Berry Vicente doesn't pay for an aide and she verbalized an understanding. Informed [facility] will deliver walker today and she verbalized an understanding.
[2018-04-19 11:44] LABS: BASO % 0.2 % (0.0-1.0); EOS % 0.3 % (1.0-4.0); HEMATOCRIT 43.8 % (42.0-52.0); HEMOGLOBIN 14.5 g/dl (14.0-18.0); LYMPH # 1.1 10*3/uL (1.3-4.4); LYMPH % 8.6 % (27.0-41.0); MEAN CELL VOLUME 96.7 fl (80.0-94.0); MEAN CORPUSCULAR HGB CONC 33.1 g/dl (33.0-37.0); MONO # 0.8 10*3/uL (0.1-1.0); MONO % 6.1 % (3.0-9.0); NEUT # 10.6 10*3/uL (2.3-7.9); NEUT % 83.5 % (47.0-73.0); PLATELET COUNT AUTOMATED 385 10*3/uL (130-400); RED BLOOD COUNT 4.53 10*6/uL (4.50-5.90); RED CELL DISTRI WIDTH 13.5 % (0-14.5); WHITE BLOOD COUNT 12.8 10*3/uL (4.8-10.8)
[2018-04-19 11:53] LABS: BUN 15 mg/dl (7-24); CHLORIDE 99 mmol/L (98-107); CREATININE 1.08 mg/dL (0.70-1.30); SODIUM 136 mmol/L (136-145)
[2018-04-19 12:00] VITALS: BP 101/53
[2018-04-19 16:00] VITALS: BP 123/78
--- NOTE | 2018-04-19 17:37 | NUR ---
PT RESTING IN BED. NO DISTRESS NOTED. WILL MONITOR FAMILY AT BEDSIDE
[2018-04-19 20:00] VITALS: BP 126/83
--- NOTE | 2018-04-19 20:00 | NUR ---
PT RESTING IN BED WITH DAUGHTER AT HIS SIDE. RESP-EASY AND REGULAR. NO C/O AT THIS TIME. CALL LIGHT IN REACH.
--- NOTE | 2018-04-19 20:38 | NUR ---
CALLED DR. RODRIGUEZ REGARDING PT KLONOPIN AND BUSPAR. DAUGHTER WAS CONCERNED CAUSE HE HASN'T HAD HIS PTSD MEDICATIONS. DR. RODRIGUEZ ORDERED BUSPAR FOR NOW.
--- NOTE | 2018-04-19 21:20 | NUR ---
PT TOLERATED ROUTINE MEDS WITH NO PROBLEM. BSG-[id number], SEE EMAR. NO C/O AT THIS TIME. CALL LIGHT IN REACH.
--- NOTE | 2018-04-19 23:20 | NUR ---
PT REQUESTING PAIN MEDICATION FOR RIGHT HIP PAIN, RATES PAIN 8 ON PAIN SCALE 0-10. MEDICATED WITH TYLENOL PO PER PRN ORDER, SEE EMAR. CALL LIGHT IN REACH. SEE SHIFT ASSESSMENT.
[2018-04-20] VITALS: BP 137/86
--- NOTE | 2018-04-20 00:20 | NUR ---
RESTING IN BED WATCHING TV. STATES PAIN MEDICATION HELPS. CALL LIGHT IN REACH.
--- NOTE | 2018-04-20 04:00 | NUR ---
RESTING IN BED WITH EYES CLOSED. RESP-EASY AND REGULAR. CALL LIGHT IN REACH.
--- NOTE | 2018-04-20 05:40 | NUR ---
TOLERATED ROUTINE IV MEDICATION. BSG-176, SEE EMAR. NO C/O AT THIS TIME. CALL LIGHT IN REACH.
--- NOTE | 2018-04-20 07:25 | NUR ---
BEDSIDE REPORT OBTAINED FROM JACKSON-RIHCARD. PATIENT IS AWAKE AND ALERT, VO\ICED NO COMPLAINTS AT THIS TIME. NO S&S OF DISTRESS NOTED, RESP ARE ERND ON ROOM AIR. BED IS LOCKED IN LOWEST POSITION, ALARM MAINTAINED. CALL LIGHT LEFT WITHIN REACH.
[2018-04-20 08:00] VITALS: BP 116/68; BP 140/74
[2018-04-20 12:00] VITALS: BP 142/80
--- NOTE | 2018-04-20 12:22 | NUR ---
PHYSICAL THERAPY Patient seen this AM for his therapy session, supine in bed at time of arrival. Supine to sit; IL. STS from EOB to FWW with S followed by gait training with use of FWW and CGA/SBA for ~100'x2; seated rest break once destination reached-- cues for safety during directional changes and keeping SUE within walker. Seated B LE ther-ex 2x10 reps for LE strength, endurance and ROM: marches, LAQ, hip abd/add, ankle PF/DF and h/s curls-- intermittent rest breaks provided. DRUM BUILDER provided cues and supervision for technique and progression of exercises. Pt informed this DRUM BUILDER he feels "much better with no pain" this date. Pt sitting EOB at session end with present in room. Call light within reach. Gabrielle Snell DRUM BUILDER
[2018-04-20 16:00] VITALS: BP 123/74
[2018-04-20 20:00] VITALS: BP 152/87
--- NOTE | 2018-04-20 21:02 | NUR ---
24 HR chart check completed.
--- NOTE | 2018-04-20 22:11 | NUR ---
TYLENOL GIVEN PER ORDER FOR PAIN IN RIGHT HIP AREA. RATED "6"
--- NOTE | 2018-04-20 23:10 | NUR ---
TYLENOL EFFECTIVE FOR PAIN PER PT.
[2018-04-21] VITALS: BP 140/78
--- NOTE | 2018-04-21 04:26 | NUR ---
TYLENOL GIVEN PER ORDER FOR RIGHT HIP PAIN RATED "6" SEE MAR.
--- NOTE | 2018-04-21 07:35 | NUR ---
BEDSDIE REPORT OBTAINED FROM WALTER. PATIENT IS RESTING IN BED, EYES CLOSED. NO S&S OF DISTRESS NOTED, RESP ARE ERND ON ROOM AIR. BED IS LOCKED IN LOWEST POSITION. CALL LIGHT LEFT WITINF REACH.
[2018-04-21 07:37] LABS: BUN 14 mg/dl (7-24); CREATININE 0.94 mg/dL (0.70-1.30)
[2018-04-21 08:00] VITALS: BP 112/62; BP 152/86
[2018-04-21 12:00] VITALS: BP 134/72
[2018-04-21 16:00] VITALS: BP 126/86
[2018-04-21 20:00] VITALS: BP 156/84
--- NOTE | 2018-04-21 20:00 | NUR ---
patient resting in bed with no s/s of distress. watching tv. denies any needs at this time. bed in lowest position, call light in reach
--- NOTE | 2018-04-21 21:10 | NUR ---
MEDICATED WITH PRN TYLENOL FOR C/O RIGHT HIP PAIN RATED 8/10 ON A 0/10 PAIN SCALE
[2018-04-22] VITALS: BP 140/91
--- NOTE | 2018-04-22 04:15 | NUR ---
PT IS RESTING IN BED AT THIS TIME WITH HIS EYES CLOSED. THERE ARE NO CURRENT S/S OF PAIN OR DISCOMFORT AT THIS TIME. RESPIRATIONS ARE EASY AND UNLABORED ON ROOM AIR. BED IS IN LOWEST POSITION AND CALL LIGHT IS WITHIN REACH. WILL CONTINUE TO MONITOR PT.
[2018-04-22 07:12] LABS: BASO # 0.1 10*3/uL (0.0-0.1); BASO % 0.4 % (0.0-1.0); EOS # 0.3 10*3/uL (0.0-0.4); EOS % 1.8 % (1.0-4.0); HEMATOCRIT 45.5 % (42.0-52.0); HEMOGLOBIN 14.3 g/dl (14.0-18.0); LYMPH # 1.8 10*3/uL (1.3-4.4); LYMPH % 13.4 % (27.0-41.0); MEAN CELL VOLUME 99.6 fl (80.0-94.0); MEAN CORPUSCULAR HGB 31.3 pg (27.0-31.0); MEAN CORPUSCULAR HGB CONC 31.4 g/dl (33.0-37.0); MEAN PLATELET VOLUME 9.1 fl (9.6-12.3); MONO # 0.7 10*3/uL (0.1-1.0); NEUT # 10.6 10*3/uL (2.3-7.9); NEUT % 77.7 % (47.0-73.0); PLATELET COUNT AUTOMATED 404 10*3/uL (130-400); RED BLOOD COUNT 4.57 10*6/uL (4.50-5.90); RED CELL DISTRI WIDTH 13.6 % (0-14.5); WHITE BLOOD COUNT 13.7 10*3/uL (4.8-10.8)
[2018-04-22 07:15] LABS: POTASSIUM 4.9 mmol/L (3.5-5.1)
--- NOTE | 2018-04-22 07:15 | NUR ---
BEDSIDE REPORT OBTAINED FROM CHARY. PATIENT IS RESTING BED, EYES CLOSED. NO S&S OF DISTRESS NOTED, RESP ARE ERND ON ROOM AIR. BED IS LOCKED IN LOWEST POSITION, CALL LIGHT LEFT WITHIN REACH.
[2018-04-22 07:31] LABS: INTERNATIONAL NORM RATIO 1.1 (2.0-3.5)
[2018-04-22 08:00] VITALS: BP 138/84
--- NOTE | 2018-04-22 09:00 | NUR ---
Plastic Tile Layer in to see patient. No new needs or request at this time. When medically stable he will be discharged to home with [facility].
--- NOTE | 2018-04-22 10:41 | NUR ---
OT NOTE Attempted to see pt this A.M. for OT session and upon arrival pt had reports of "having no energy" from being NPO and 8/10 R hip pain. Requesting to be seen at a later time. Will continue with POC as able. LISA Voss/Stevan
[2018-04-22 11:24] VITALS: BP 136/87
[2018-04-22 12:46] VITALS: BP 119/68
--- NOTE | 2018-04-22 12:50 | NUR ---
OT NOTE Second attempt made to see pt this P.M. for OT session and upon arrival pt was out of his room for medical procedure. Will check back at a later time/date. LISA Voss/Stevan
[2018-04-22 13:01] VITALS: BP 124/78
[2018-04-22 13:16] VITALS: BP 129/77
--- NOTE | 2018-04-22 14:07 | NUR ---
PHYSICAL THERAPY Patient was going to medical procedure at 10:42 AM. Will check back later. YADIRA PORRAS POLYGRAPH OPERATOR
[2018-04-22] MEDS ORDERED: TOPROL XL100 MG PO (14:27)
[2018-04-22] MEDS ORDERED: LEVAQUIN750 M1 PO (14:27)
[2018-04-22] MEDS ORDERED: Lanoxin PO (14:27)
[2018-04-22] MEDS ORDERED: XARE20MG PO (14:27)
--- NOTE | 2018-04-22 14:34 | NUR ---
PHYSICAL THERAPY Patient is eating lunch at this time. Will check back at a later time. YADIRA PORRAS AUTOMOTIVE PARTS COUNTER ASSISTANT
--- NOTE | 2018-04-22 15:45 | NUR ---
Discharge instructions reviewed with patient/family. Patient receptive and verbalizes understanding. Follow-up care arranged. Written instructions given to patient/family. 2 IV CATH REMOVED, MONITOR ACCOUNTED FOR AND PLACED IN BIN. NO ADMITTING BELONGINGS LIST COMPLETED, PATIENT STATED HE COLLECTED ALL OF HIS BELONGINGS. RADHA DELCID
--- NOTE | 2018-04-23 07:45 | NUR ---
PHYSICAL THERAPY CO-SIGN I approve of the Phyical Therapy notes written above. KAREN GALAVIZ PT
--- NOTE | 2018-04-23 10:55 | NUR ---
Spoke to Jose E in pharmacy regarding Dalvanze for outpatient. Dalvanze would have to be ordered once we have an authorization for it. Spoke to [place] at [facility] regarding prior authorization. Authorization approved. Auth # [id number]. Spoke to Louis in pharmacy and Bette in central scheduling. Prescription faxed to pharmacy and central scheduling. Dr. Schwarz notified.
[2018-06-03] MEDS ORDERED: TRAMADOL HCL50 MG PO (11:13)
== END 2018-04-22 15:45 | disposition home health service (06) | DRG 871 ==
LOC: ED 07:40 → EDHOLD 09:31 → 5E 09:31
PROVIDERS: Emergency Medicine; Internal Medicine; Internal Medicine Cardiovascular Disease; Internal Medicine Critical Care Medicine; ADMIT Internal Medicine
PROC: 3E073KZ Introduction of Other Diagnostic Substance into Coronary Artery, Percutaneous Approach (ICD-10-PCS; principal; 2018-04-12)
PROC: 4A02XM4 Measurement of Cardiac Total Activity, External Approach (ICD-10-PCS; principal; 2018-04-12)
DX: A41.01 Sepsis due to Methicillin susceptible Staphylococcus aureus (principal); G93.41 Metabolic encephalopathy; I21.A1 Myocardial infarction type 2; N17.9 Acute kidney failure, unspecified; E87.1 Hypo-osmolality and hyponatremia; F33.9 Major depressive disorder, recurrent, unspecified; R74.8 Abnormal levels of other serum enzymes; F41.1 Generalized anxiety disorder; R62.7 Adult failure to thrive; S70.01XA Contusion of right hip, initial encounter; E11.65 Type 2 diabetes mellitus with hyperglycemia; F41.0 Panic disorder [episodic paroxysmal anxiety]; I25.10 Atherosclerotic heart disease of native coronary artery without angina pectoris; D64.9 Anemia, unspecified; G89.29 Other chronic pain; M54.9 Dorsalgia, unspecified; F17.210 Nicotine dependence, cigarettes, uncomplicated; E55.9 Vitamin D deficiency, unspecified; J43.9 Emphysema, unspecified; I10 Essential (primary) hypertension; I48.0 Paroxysmal atrial fibrillation; E78.5 Hyperlipidemia, unspecified; I35.1 Nonrheumatic aortic (valve) insufficiency; X58.XXXA Exposure to other specified factors, initial encounter; E87.8 Other disorders of electrolyte and fluid balance, not elsewhere classified; T50.2X5A Adverse effect of carbonic-anhydrase inhibitors, benzothiadiazides and other diuretics, initial encounter; F43.10 Post-traumatic stress disorder, unspecified; Y93.89 Activity, other specified; Y92.89 Other specified places as the place of occurrence of the external cause; Y99.8 Other external cause status; Z68.23 Body mass index [BMI] 23.0-23.9, adult; Z95.5 Presence of coronary angioplasty implant and graft; Z90.49 Acquired absence of other specified parts of digestive tract; Z80.41 Family history of malignant neoplasm of ovary; Z79.899 Other long term (current) drug therapy; Z79.82 Long term (current) use of aspirin

== ENCOUNTER 2018-05-16 15:14 | Emergency (ER) | payer OTHER ==
[~2018-05-16] VITALS: Ht 177.8 cm; Wt 74.4 kg
[~2018-05-16 15:14] MED LIST changes: +ASPIRIN81 M1 PO; +HYDROCHLOROTHIA50 M1 PO; +LEVAQUIN750 M1 PO; +Lanoxin PO; +MEGA RED PO; +SYMB80 INH; +TOPROL XL100 MG PO; +ULTRAM50 MG PO; +VIT D3 PO; +XARE20MG PO
[2018-05-16 15:53] LABS: BASO % 0.5 % (0.0-1.0); EOS # 0.3 10*3/uL (0.0-0.4); HEMATOCRIT 39.5 % (42.0-52.0); HEMOGLOBIN 12.6 g/dl (14.0-18.0); LYMPH # 1.8 10*3/uL (1.3-4.4); LYMPH % 22.1 % (27.0-41.0); MEAN CELL VOLUME 100.5 fl (80.0-94.0); MEAN CORPUSCULAR HGB 32.1 pg (27.0-31.0); MEAN CORPUSCULAR HGB CONC 31.9 g/dl (33.0-37.0); MEAN PLATELET VOLUME 9.1 fl (9.6-12.3); MONO % 11.9 % (3.0-9.0); NEUT % 61.3 % (47.0-73.0); PLATELET COUNT AUTOMATED 231 10*3/uL (130-400); RED BLOOD COUNT 3.93 10*6/uL (4.50-5.90); WHITE BLOOD COUNT 8.2 10*3/uL (4.8-10.8)
[2018-05-16 16:16] LABS: BUN 22 mg/dl (7-24); CHLORIDE 101 mmol/L (98-107); CREATININE 1.03 mg/dL (0.70-1.30); POTASSIUM 4.2 mmol/L (3.5-5.1); SODIUM 138 mmol/L (136-145)
[2018-05-16] MEDS ORDERED: SEPTDS PO (16:21)
[2018-06-03] MEDS ORDERED: TRAMADOL HCL50 MG PO (11:13)
== END 2018-05-16 16:15 | disposition home or self-care (01) ==
LOC: ED 15:14
PROVIDERS: Physician Assistant
DX: L02.415 Cutaneous abscess of right lower limb (principal); Z79.899 Other long term (current) drug therapy; Z87.891 Personal history of nicotine dependence

== ENCOUNTER 2018-05-20 12:22 | Inpatient (IN) | payer OTHER ==
[~2018-05-20] VITALS: Ht 177.8 cm; Wt 73.2 kg
--- NOTE | ~2018-05-20 | WRIGHTHP ---
[place], [place] PATIENT HISTORY AND PHYSICAL EXAM [id number] #: [id number] ROOM: 403 DOCTOR: MAIA RODRIUGEZ MD BIRTHDATE: [birth year] DOS: 05/20/2018 HISTORY OF PRESENT ILLNESS: This patient is 67 years old, who was admitted earlier this month for the hematoma of the right hip, who comes back into the Emergency Room on the with some discharge from the right hip area. The hematoma had actually gotten smaller last time I saw him, which was a week after hospital discharge. But this time when he presented on the , the patient stated that his swelling had gotten bigger and he was wearing a jeans, it rubbed on the area and caused a small abrasion and it was starting to drain. He decided to push on it and did get some more drainage and so, he decided to come into the Emergency Room. He was seen in the ER, was given Bactrim and sent home. At that time, there was no active drainage per the ER staff. He went home and came back yesterday to the office with increased drainage. He denies having any chest pains, palpitations or shortness breath. He does not have any fever or chills. Some minimal discomfort in the area. PAST MEDICAL HISTORY: Significant for; 1. Hematoma with hospitalization, discharged 04/22/2018. 2. Staphylococcus bacteremia. 3. Generalized anxiety disorder. 4. Chronic panic attacks. 5. Adult failure to thrive. 6. History of one episode of lone AFib. 7. Chronic back pain. 8. Posttraumatic stress disorder. MEDICATIONS: That he is currently on are Klonopin 0.5 b.i.d., BuSpar 20 t.i.d., Lanoxin 0.125 daily, metformin 500 b.i.d., metoprolol 100 daily, Xarelto 20 daily, simvastatin 10 daily, tramadol 50 b.i.d. p.r.n., venlafaxine 150 b.i.d. SOCIAL HISTORY: Smoker of about a half to 1 pack of cigarettes a day. Denies using any alcohol. PHYSICAL EXAMINATION: GENERAL: He is awake and alert and oriented, in no distress. VITAL SIGNS: Graphic trend shows a blood pressure of 130/60, pulse of 60, respirations 20, temperature 97.3. LUNGS: Clear. HEART: Regular. ABDOMEN: Soft. EXTREMITIES: No swelling. Right gluteal area, a large mass noted with an area in the middle, which is quite red and fluctuant and draining yellowish drainage. ASSESSMENT AND PLAN: 1. Abscess, right gluteal area. Ultrasound ordered. Surgical consultation obtained for possible I and D. IV antibiotics started. Wound cultures done. Routine blood work including ESR and CRP ordered. 2. Benign hypertension, controlled. 3. History of lone atrial fibrillation, was on anticoagulation, which are continued. [place], [place] PATIENT HISTORY AND PHYSICAL EXAM NAME: CARMITA BOWMAN II UNIT #: [id number] ROOM: 403 DOCTOR: MAIA RODRIGUEZ MD BIRTHDATE: [birth year] 4. Type 2 diabetes mellitus. Blood sugars to be checked. MAIA RODRIGUEZ MD CM:HISPHYS:PATIENT HISTORY AND PHYSICAL EXAMINATION [id number] MAIA RODRIGUEZ MD 05/21/18919 interface
--- NOTE | ~2018-05-20 | PR ---
[place], [place] PROGRESS NOTE NAME[id number] UNIT #: [id number] ROOM: 403 DOCTOR: MAIA RODRIGUEZ MD BIRTHDATE: [birth year] DOS: SUBJECTIVE: The patient is doing well. Appreciate Dr. Zhang's input. I and D was performed yesterday with serosanguineous fluid coming out, which was not purulent and so this does not appear to be an abscess, which is purely hematoma. OBJECTIVE: VITAL SIGNS: Blood pressure is 143/68, pulse is 66, respirations 20, temperature 98.3. LUNGS: Clear. HEART: Regular. ABDOMEN: Obese. EXTREMITIES: Without any edema. LABORATORY DATA: Blood cultures, no bacterial growth. Wound culture, no bacterial growth. Ultrasound of the area shows no abscess. ESR was only 60. CRP was 2.51. ASSESSMENT AND PLAN: Hematoma of the right gluteal area, which was starting to improve, but then became pretty large with some redness and drainage and a possibility of the abscess was raised and he was admitted. So far, there was no evidence of abscess. This appears to be just hematoma, which is draining. Dr. Zhang did do incision and drainage. The patient is stable. Visiting nurses will be consulted and the patient is advised to have the wound dressed daily and packed, visiting nurses will be consulted for that. The patient is on Bactrim, which is advised to continue taking as an outpatient until it is over. MAIA RODRIGUEZ MD CM:PNALIDA [id number] MAIA RODRIGUEZ MD 05/23/18 0139 interface
--- NOTE | ~2018-05-20 | DS ---
[place], [place] DISCHARGE SUMMARY [id number] #: [id number] ROOM: 403 DOCTOR: MAIA RODRIGUEZ MD BIRTHDATE: [birth year] DOS: 05/22/2018 DIAGNOSES: 1. Hematoma, right gluteal area, status post incision and drainage, ruled out abscess. 2. Recent history of Staphylococcus bacteremia. 3. Benign hypertension. 4. Lone atrial fibrillation. 5. Posttraumatic stress disorder with a history of panic attacks. 6. Generalized anxiety disorder. 7. Major depression, moderate, recurrent. 8. Type 2 diabetes mellitus. HOSPITAL COURSE: The patient is a 67-year-old with a known history of hematoma of the right hip, came back in with complaints of increased swelling with redness and drainage. Initial suspicion was this is an abscess. The patient was admitted. Ultrasound was ordered, which did not show any clear-cut fluid collection. The patient was placed on vancomycin and nafcillin. Wound cultures, blood cultures have all come back negative; therefore, the patient will be discharged to home today. Dr. Zhang already saw the patient. An I and D was performed and he does not think this is an abscess. The patient is stable and is not having any complaints. ESR and CRP were fairly on the low side. The patient was on Bactrim recently through the Emergency Room, which he still has at home. He is advised to continue with the prescription and complete the prescription. Visiting nurses will be consulted for daily dressings and packing with Aquacel and the patient will follow up with the wound clinic with Dr. Zhang. MAIA RODRIGUEZ MD CM:DISCHARG [id number] MAIA RODRIGUEZ MD 05/22/[id number] interface
[~2018-05-20 12:22] MED LIST changes: +SEPTDS PO
[2018-05-20 13:00] VITALS: BP 134/64
--- NOTE | 2018-05-20 13:00 | NUR ---
Time: 1300 A 67 year old MALE admitted to under services of MAIA SANTOS MD. Pt. arrived via wheel chair from ADM. Chief complaint: ABSCESS TO RIGHT HIP.. MARIA G BLISS
--- NOTE | 2018-05-20 13:36 | NUR ---
MEDS RECONCILED AT BEDSIDE WITH PT AND MED LIST PROVIDED.
--- NOTE | 2018-05-20 13:53 | NUR ---
NOTIFIED DR JO OF NEW CONSULT FOR RIGHT HIP WOUND.
[2018-05-20 14:54] LABS: BASO # 0.1 10*3/uL (0.0-0.1); BASO % 0.6 % (0.0-1.0); EOS # 0.3 10*3/uL (0.0-0.4); EOS % 3.4 % (1.0-4.0); HEMOGLOBIN 13.2 g/dl (14.0-18.0); LYMPH # 2.8 10*3/uL (1.3-4.4); LYMPH % 29.6 % (27.0-41.0); MEAN PLATELET VOLUME 9.5 fl (9.6-12.3); MONO # 1.1 10*3/uL (0.1-1.0); MONO % 11.2 % (3.0-9.0); NEUT # 5.1 10*3/uL (2.3-7.9); NEUT % 54.1 % (47.0-73.0); PLATELET COUNT AUTOMATED 273 10*3/uL (130-400); RED CELL DISTRI WIDTH 14.8 % (0-14.5); WHITE BLOOD COUNT 9.4 10*3/uL (4.8-10.8)
[2018-05-20 16:00] VITALS: BP 94/59
--- NOTE | 2018-05-20 16:02 | NUR ---
DR JO ROUNDED AND SEEN PT. DISCUSSED BEDSIDE DEBRIDEMENT POSSIBLY WITH PT TOMORROW DEPENDING ON POT RESPONSE TO ABX PER DR JO.ORDER RECIEVED.
--- NOTE | 2018-05-20 18:28 | NUR ---
DRESSING CHANGE TO RIGHT HIP COMPLETED PE RDR BOGEN'S ORDER.PT DRAINING COPIOUS AMOUNTS OF SEROUS/PURELENT DRAINAGE.
[2018-05-20 20:00] VITALS: BP 129/77
--- NOTE | 2018-05-20 21:45 | NUR ---
PATIENT RESTING IN BED. VOICES NO COMPLAINTS AT THIS TIME. HIP DRESSING INTACT. BED IN LOWEST POSITION, CALL LIGHT WITHIN REACH. WILL CONTINUE TO MONITOR.
--- NOTE | 2018-05-21 05:22 | NUR ---
GRACIE RODASCARMITA Celestin [id number] Please refer to the physician's history and physical for past medical history, comorbid conditions, and allergies. Diagnosis: ABSCES RT HIP & BUTTOCK Ind[place] Score: 21,LOW OR NO RISK WOUND DESCRIPTIONS: Location of the wound: Right hip Type of wound: abscess Thickness: Full Size: 1.3cm x 1.9cm x 1.8cm Tunneling: none Undermining: none Sinus Tract: none Presence of Exudate: Purulent Amount: Heavy Color: Yellow Odor: None Periwound Skin Appearance: Erythema Wound edges: approximated Pain (associated with wound): tender to touch How does patient state this happened? pt stated about 3-4 weeks ago he fell asleep with his conceal carry and woke and and took it off and was having pain from that time on. He stated he has came to this hospital on two other occasions and was sent home on antibiotic. Surface the patient is resting on: Isoflex SKIN PREVENTION RECOMMENDATION: 1. Pressure redistribution support surface as appropriate 2. Elevate heels 3. Remove boots/TEDS every shift and reapply 4. Head of bed 30 degrees as tolerated 5. Assess nutrition and hydration 6. Manage moisture 7. Avoid the use of containment devices while in bed 8. Use absorptive products on surfaces limit layers of linens on bed 9. Turn and reposition every 1-2 hours in bed and every 1 hour in chair as tolerated 10. Weight shifts every 15 minutes while up in chair 11. Offloading with pillows or device to keep heels elevated off bed 12. Monitor skin at least every shift 13. Inspect under medical devices twice a day WOUND TREATMENT RECOMMENDATIONS: Continue current dressing order per Dr. Zhang possible debridement needed.
[2018-05-21 08:00] VITALS: BP 126/79
--- NOTE | 2018-05-21 08:18 | NUR ---
DR RODRIGUEZ IN TO SEE PT. NEW ORDERS RECEIVED.
--- NOTE | 2018-05-21 08:40 | NUR ---
PT TO ULTRASOUND VIA WC.
--- NOTE | 2018-05-21 09:00 | NUR ---
Community Chest Officer in to talk to patient. Patient states lives at home with his . There are 18 steps in the home. Physician: Dr. Therese Schwarz [facility]: [facility] Home health services: none Patient's level of ADLs: INDEPENDENT Patient has working utilities: yes DME: [facility] Follow-up physician's appointment after d/c: he prefers to make his own follow up appt after discharge Does patient want to access PORTAL?: no Discharge plan discussed with patient. He lives at home with his . He is independent in his ADLs and ambulation. Discussed home health care services and he denies any home needs at this time. When medically stable he will be discharged to home. CHAPINCITO HUERTA
--- NOTE | 2018-05-21 09:05 | NUR ---
PT RETURNED FROM ULTRASOUND.
[2018-05-21 16:00] VITALS: BP 117/74
--- NOTE | 2018-05-21 18:06 | NUR ---
DR JO HERE TO DEBRIDE PT'S RIGHT HIP. PT TOLERATED PROCEDURE WELL.
[2018-05-21 20:00] VITALS: BP 143/68
--- NOTE | 2018-05-21 20:15 | NUR ---
UPDATED DR RODRIGUEZ ON PT'S CONDITION AND PLAN OF CAR POST DEBRIDEMENT. DR RODRIGUEZ STATED SHE WILL SEND PT HOME TOMORROW.
--- NOTE | 2018-05-22 04:52 | NUR ---
DRESSING TO RIGHT HIP CHANGED AT THIS TIME D/T SATURATION. PATIENT TOLERATED WELL. WILL CONTINUE TO MONITOR.
[2018-05-22 06:38] LABS: CREATININE 1.12 mg/dL (0.70-1.30)
[2018-05-22 08:00] VITALS: BP 139/80
--- NOTE | 2018-05-22 08:00 | NUR ---
IN TO SEE PATIENT.
--- NOTE | 2018-05-22 10:03 | NUR ---
Follow up in the wound care center 05/23/18 at 9:00am with Dr. Zhang.
--- NOTE | 2018-05-22 10:05 | NUR ---
PATIENT REFUSING DRESSING CHANGE AND PHOTO PER POLICY. PT JUST HAD DRESSING CHANGE THIS AM BY WOUND NURSE. WOUND CARE FOLLOW UP APT DISCUSSED WITH PATIENT. PT VERBALIZED UNDERSTANDING.
--- NOTE | 2018-05-22 10:11 | NUR ---
Discharge instructions reviewed with patient/family. Patient receptive and verbalizes understanding. Follow-up care arranged. Written instructions given to patient/family. DENI PORTER.
--- NOTE | 2018-05-22 10:56 | NUR ---
Spoke to Grace at [facility]. Patient is current with their therapy. Faxed demos and clinical. Grace stated they will restart nursing service tomorrow for dressing changes.
[2018-06-03] MEDS ORDERED: TRAMADOL HCL50 MG PO (11:13)
== END 2018-05-22 10:11 | disposition home health service (06) | DRG 580 ==
LOC: 4E 12:22
PROVIDERS: ADMIT Internal Medicine
PROC: 0HBHXZZ Excision of Right Upper Leg Skin, External Approach (ICD-10-PCS; principal; 2018-05-21)
PROC: 0J9L0ZZ Drainage of Right Upper Leg Subcutaneous Tissue and Fascia, Open Approach (ICD-10-PCS; 2018-05-21)
DX: S70.11XA Contusion of right thigh, initial encounter (principal); F33.1 Major depressive disorder, recurrent, moderate; I10 Essential (primary) hypertension; F41.1 Generalized anxiety disorder; F41.0 Panic disorder [episodic paroxysmal anxiety]; F43.10 Post-traumatic stress disorder, unspecified; I48.91 Unspecified atrial fibrillation; E11.9 Type 2 diabetes mellitus without complications; E66.9 Obesity, unspecified; F17.210 Nicotine dependence, cigarettes, uncomplicated; X58.XXXA Exposure to other specified factors, initial encounter; Y93.89 Activity, other specified; Y92.89 Other specified places as the place of occurrence of the external cause; Z68.23 Body mass index [BMI] 23.0-23.9, adult; Y99.8 Other external cause status; Z79.84 Long term (current) use of oral hypoglycemic drugs; Z79.899 Other long term (current) drug therapy

== ENCOUNTER → 2018-06-03 | Day surgery (SDC) | payer OTHER ==
[2018-05-31 09:53] LABS: BASO # 0.1 10*3/uL (0.0-0.1); BASO % 0.9 % (0.0-1.0); EOS # 0.3 10*3/uL (0.0-0.4); EOS % 3.5 % (1.0-4.0); HEMOGLOBIN 13.9 g/dl (14.0-18.0); LYMPH # 2.7 10*3/uL (1.3-4.4); LYMPH % 29.8 % (27.0-41.0); MEAN CELL VOLUME 101.4 fl (80.0-94.0); MEAN CORPUSCULAR HGB 32.8 pg (27.0-31.0); MEAN CORPUSCULAR HGB CONC 32.3 g/dl (33.0-37.0); MEAN PLATELET VOLUME 8.8 fl (9.6-12.3); MONO % 10.8 % (3.0-9.0); NEUT # 4.9 10*3/uL (2.3-7.9); NEUT % 53.9 % (47.0-73.0); PLATELET COUNT AUTOMATED 248 10*3/uL (130-400); RED BLOOD COUNT 4.24 10*6/uL (4.50-5.90); RED CELL DISTRI WIDTH 14.3 % (0-14.5); WHITE BLOOD COUNT 9.2 10*3/uL (4.8-10.8)
[2018-05-31 10:16] LABS: BUN 22 mg/dl (7-24); CHLORIDE 101 mmol/L (98-107); CREATININE 1.29 mg/dL (0.70-1.30); POTASSIUM 5.1 mmol/L (3.5-5.1); SODIUM 136 mmol/L (136-145)
[~2018-06-03] VITALS: Ht 177.8 cm; Wt 72.6 kg
[2018-06-03] VITALS (8 sets, daily range): BP systolic 71–125; BP diastolic 38–78
--- NOTE | ~2018-06-03 | EKG ---
[place], [place] ELECTROCARDIOGRAM REPORT NAME: CARMITA BOWMAN II UNIT #: [id number] ROOM: DOCTOR: EPIPHANY DRAFT REPORT BIRTHDATE: [birth year] [facility] Test Date: 2018-05-31 Test Time: 09:59:37 Pat Name: CARMITA BOWMAN Department: Room: Gender: M Councilor: Cassandra Ferreira : 1950 Requested By: EDIN JO Order Number: [id number] Reading MD: Ida Beasley MD Measurements Intervals Harman Rate: 55 P: 5 [place]: 165 QRS: 36 QRSD: 93 T: 52 QT: 391 QTc: 374 Interpretive Statements Sinus rhythm Atrial premature complex Anterior infarct, old Baseline wander in lead(s) V2 Compared to ECG 04/12/2018 09:38:25 Atrial premature complex(es) now present Atrial fibrillation no longer present Ventricular premature complex(es) no longer present Myocardial infarct finding still present Electronically Signed On 05-31-2018 10:01:07 PDT by Ida Beasley MD CM:EKGRPT:ELECTROCARDIOGRAM REPORT [id number] [facility] EDIN JO MD
== END | disposition home or self-care (01) ==
LOC: SDC 05-31 09:30
DX: S71.001A Unspecified open wound, right hip, initial encounter (principal); S70.11XA Contusion of right thigh, initial encounter; X58.XXXA Exposure to other specified factors, initial encounter; Y93.89 Activity, other specified; Y92.89 Other specified places as the place of occurrence of the external cause; Y99.8 Other external cause status; I25.2 Old myocardial infarction; I25.10 Atherosclerotic heart disease of native coronary artery without angina pectoris; L02.415 Cutaneous abscess of right lower limb; I10 Essential (primary) hypertension; F41.9 Anxiety disorder, unspecified; F32.9 Major depressive disorder, single episode, unspecified; E11.9 Type 2 diabetes mellitus without complications; Z72.89 Other problems related to lifestyle; Z87.891 Personal history of nicotine dependence; Z90.49 Acquired absence of other specified parts of digestive tract; Z98.890 Other specified postprocedural states; Z95.818 Presence of other cardiac implants and grafts; Z79.899 Other long term (current) drug therapy

== ENCOUNTER → 2018-06-22 | Outpatient (CLI) | payer OTHER | END | disposition home or self-care (01) | LOC: LAB 06-21 09:06 | DX: R19.7 Diarrhea, unspecified (principal) ==

== ENCOUNTER → 2018-08-01 | Outpatient (CLI) | payer OTHER | END | disposition home or self-care (01) | LOC: WOUNDCARE 02:11 | DX: S70.01XD Contusion of right hip, subsequent encounter (principal); S70.11XD Contusion of right thigh, subsequent encounter; L02.415 Cutaneous abscess of right lower limb; L92.8 Other granulomatous disorders of the skin and subcutaneous tissue; E11.9 Type 2 diabetes mellitus without complications; I10 Essential (primary) hypertension; E78.5 Hyperlipidemia, unspecified; I48.0 Paroxysmal atrial fibrillation; F43.10 Post-traumatic stress disorder, unspecified; Z87.891 Personal history of nicotine dependence; X58.XXXD Exposure to other specified factors, subsequent encounter ==

== ENCOUNTER → 2019-01-07 | Outpatient (CLI) | payer OTHER | END | disposition home or self-care (01) | LOC: RAD 11:47 | DX: M43.17 Spondylolisthesis, lumbosacral region (principal); M47.817 Spondylosis without myelopathy or radiculopathy, lumbosacral region; M51.37 Other intervertebral disc degeneration, lumbosacral region; M85.88 Other specified disorders of bone density and structure, other site ==

== ENCOUNTER → 2019-04-15 | Outpatient (CLI) | payer OTHER | END | disposition home or self-care (01) | LOC: RAD 12:22 | DX: R06.02 Shortness of breath (principal) ==

== ENCOUNTER → 2019-12-26 | Outpatient (CLI) | payer OTHER ==
[2019-12-26 12:56] LABS: BASO % 0.5 % (0.0-1.0); EOS # 0.4 10*3/uL (0.0-0.4); EOS % 5.2 % (1.0-4.0); HEMATOCRIT 43.9 % (42.0-52.0); LYMPH # 1.5 10*3/uL (1.3-4.4); LYMPH % 18.5 % (27.0-41.0); MEAN CORPUSCULAR HGB 31.4 pg (27.0-31.0); MEAN PLATELET VOLUME 9.5 fl (9.6-12.3); MONO # 0.7 10*3/uL (0.1-1.0); MONO % 9.2 % (3.0-9.0); NEUT # 5.2 10*3/uL (2.3-7.9); NEUT % 66.1 % (47.0-73.0); PLATELET COUNT AUTOMATED 233 10*3/uL (130-400); RED BLOOD COUNT 4.62 10*6/uL (4.50-5.90); RED CELL DISTRI WIDTH 13.2 % (0-14.5); WHITE BLOOD COUNT 7.9 10*3/uL (4.8-10.8)
[2019-12-26 13:14] LABS: ALBUMIN 3.4 gm/dl (3.1-4.5); ALKALINE PHOSPHATASE 118 U/L (45-117); BUN 19 mg/dl (7-24); CHLORIDE 103 mmol/L (98-107); CHOLESTEROL 98 mg/dL (<200); CREATININE 1.22 mg/dL (0.70-1.30); HDL CHOLESTEROL 38 mg/dl (40-60); LDL CHOLESTEROL 34 mg/dL (9-159); POTASSIUM 3.8 mmol/L (3.5-5.1); SGOT/AST 43 IU/L (3-35); SGPT/ALT 36 U/L (12-78); SODIUM 136 mmol/L (136-145); TRIGLYCERIDES 128 mg/dl (<150); VLDL CHOLESTEROL 26 mg/dL (6-40)
[2019-12-26 13:19] LABS: FREE T4 0.83 ng/dl (0.76-1.46)
[2019-12-26 13:49] LABS: VITAMIN D, 25-HYDROXY 87.6 ng/mL (30-100)
== END | disposition home or self-care (01) ==
LOC: LAB 12:24
PROVIDERS: ATTEND Internal Medicine
DX: Z12.5 Encounter for screening for malignant neoplasm of prostate (principal); I10 Essential (primary) hypertension; E11.9 Type 2 diabetes mellitus without complications; E55.9 Vitamin D deficiency, unspecified; E78.2 Mixed hyperlipidemia; Z00.00 Encounter for general adult medical examination without abnormal findings

== ENCOUNTER → 2020-05-27 | Outpatient (CLI) | payer OTHER | END | disposition home or self-care (01) | LOC: CARD 09:25 | PROVIDERS: ATTEND Internal Medicine | DX: R07.9 Chest pain, unspecified (principal) ==

== ENCOUNTER → 2021-02-07 | Outpatient (CLI) | payer OTHER | END | disposition home or self-care (01) | LOC: US 02-03 13:00 → CARD 02-03 14:00 → US 09:30 | PROVIDERS: ATTEND Internal Medicine | DX: R06.02 Shortness of breath (principal); I35.1 Nonrheumatic aortic (valve) insufficiency; R42 Dizziness and giddiness; I65.23 Occlusion and stenosis of bilateral carotid arteries ==

== ENCOUNTER → 2021-02-21 | Outpatient (CLI) | payer OTHER ==
[~2021-02-21] MED LIST changes: +GLIMEPIRIDE2 MG PO; +LOSARTAN POTASS25 M1 PO; +NATURE'S BLEND F1 MG PO; +XARELTO10 MG PO
== END | disposition home or self-care (01) ==
LOC: CARD 04:36
PROVIDERS: ATTEND Internal Medicine
DX: R07.9 Chest pain, unspecified (principal); R53.81 Other malaise

== ENCOUNTER → 2021-05-10 | Outpatient (CLI) | payer OTHER ==
[2021-05-10 13:00] LABS: BASO % 0.5 % (0.0-1.0); EOS # 0.4 10*3/uL (0.0-0.4); HEMATOCRIT 44.4 % (42.0-52.0); LYMPH # 1.9 10*3/uL (1.3-4.4); LYMPH % 22.8 % (27.0-41.0); MEAN CELL VOLUME 95.5 fl (80.0-94.0); MEAN CORPUSCULAR HGB CONC 32.4 g/dl (33.0-37.0); MEAN PLATELET VOLUME 9.8 fl (9.6-12.3); MONO # 1.1 10*3/uL (0.1-1.0); MONO % 12.5 % (3.0-9.0); NEUT # 4.9 10*3/uL (2.3-7.9); NEUT % 58.7 % (47.0-73.0); PLATELET COUNT AUTOMATED 204 10*3/uL (130-400); RED BLOOD COUNT 4.65 10*6/uL (4.50-5.90); RED CELL DISTRI WIDTH 13.2 % (0-14.5); WHITE BLOOD COUNT 8.4 10*3/uL (4.8-10.8)
[2021-05-10 13:17] LABS: ALKALINE PHOSPHATASE 114 U/L (45-117); BUN 23 mg/dl (7-24); CHLORIDE 101 mmol/L (98-107); CHOLESTEROL 85 mg/dL (<200); CREATININE 1.17 mg/dL (0.70-1.30); FREE T4 0.72 ng/dl (0.76-1.46); LDL CHOLESTEROL 16 mg/dL (9-159); POTASSIUM 4.8 mmol/L (3.5-5.1); SGOT/AST 30 IU/L (3-35); SGPT/ALT 30 U/L (12-78); SODIUM 136 mmol/L (136-145); TOTAL PROTEIN 7.8 gm/dL (6.4-8.2); TRIGLYCERIDES 160 mg/dl (<150)
[2021-05-10 14:04] LABS: VITAMIN D, 25-HYDROXY 63.9 ng/mL (30-100)
== END ==
LOC: LAB 12:26
PROVIDERS: ATTEND Internal Medicine
DX: Z12.5 Encounter for screening for malignant neoplasm of prostate (principal); I10 Essential (primary) hypertension; E11.9 Type 2 diabetes mellitus without complications; E55.9 Vitamin D deficiency, unspecified; E83.52 Hypercalcemia; E78.2 Mixed hyperlipidemia; Z00.00 Encounter for general adult medical examination without abnormal findings

== ENCOUNTER → 2022-01-24 | Outpatient (CLI) | payer OTHER | LOC: RAD 09:36 | PROVIDERS: ATTEND Internal Medicine | DX: J43.9 Emphysema, unspecified (principal) ==

== ENCOUNTER → 2022-03-02 | Outpatient (CLI) | payer OTHER | END | disposition home or self-care (01) | LOC: RAD 11:43 | PROVIDERS: ATTEND Internal Medicine | DX: J43.9 Emphysema, unspecified (principal); M41.84 Other forms of scoliosis, thoracic region ==

== ENCOUNTER → 2023-05-07 | Outpatient (CLI) | payer OTHER ==
[~2023-05-07] MED LIST changes: +KRILL OIL500 MG PO
== END | disposition home or self-care (01) ==
LOC: US 02:59
PROVIDERS: ATTEND Internal Medicine
DX: N40.0 Benign prostatic hyperplasia without lower urinary tract symptoms (principal)

== ENCOUNTER → 2023-06-05 | Outpatient (CLI) | payer OTHER ==
[2023-06-05 10:15] LABS: BASO # 0.1 10*3/uL (0.0-0.1); BASO % 0.5 % (0.0-1.0); EOS # 0.6 10*3/uL (0.0-0.4); HEMATOCRIT 42.4 % (42.0-52.0); LYMPH # 2.3 10*3/uL (1.3-4.4); LYMPH % 24.9 % (27.0-41.0); MEAN CELL VOLUME 93.4 fl (80.0-94.0); MEAN CORPUSCULAR HGB 27.5 pg (27.0-31.0); MEAN CORPUSCULAR HGB CONC 29.5 g/dl (33.0-37.0); MEAN PLATELET VOLUME 9.3 fl (9.6-12.3); MONO # 0.9 10*3/uL (0.1-1.0); MONO % 9.4 % (3.0-9.0); NEUT # 5.5 10*3/uL (2.3-7.9); NEUT % 58.8 % (47.0-73.0); PLATELET COUNT AUTOMATED 258 10*3/uL (130-400); RED BLOOD COUNT 4.54 10*6/uL (4.50-5.90); RED CELL DISTRI WIDTH 14.5 % (0-14.5); WHITE BLOOD COUNT 9.4 10*3/uL (4.8-10.8)
[2023-06-05 10:42] LABS: ALKALINE PHOSPHATASE 95 U/L (46-116); BUN 22 mg/dl (9-23); CHLORIDE 102 mmol/L (98-107); POTASSIUM 4.6 mmol/L (3.4-5.1); SGPT/ALT 9 U/L (5-49); TOTAL PROTEIN 7.6 gm/dL (6.0-8.0)
[2023-06-05 15:20] LABS: BILIRUBIN Negative (Negative); BLOOD 3+ (Negative); CLARITY Clear (Clear); COLOR Yellow (Yellow); GLUCOSE 3+ (Negative); KETONE Negative (Negative); LEUKO ESTERASE Negative (Negative); NITRITE Negative (Negative); PH 5.5 (4.5-8.0); SPECIFIC GRAVITY >= 1.030 (1.001-1.030)
[2023-06-05 15:49] LABS: MUCOUS TRACE; RBC 51-100 rbc/hpf (0-2)
[2023-06-11 22:05] LABS: FREE PSA 1.047 ng/mL (.)
== END | disposition home or self-care (01) ==
LOC: LAB 09:50
PROVIDERS: ATTEND Urology
DX: N42.9 Disorder of prostate, unspecified (principal)

== ENCOUNTER 2023-06-26 12:12 | Inpatient (IN) | payer OTHER ==
[~2023-06-26] VITALS: Ht 177.8 cm; Wt 70.0 kg
[2023-06-26 12:33] VITALS: BP 110/78
[2023-06-26] MEDS ORDERED: methylPREDNISolone sod succ 125 MG VIAL IV ONE (12:45)
[2023-06-26] MEDS ORDERED: Albuterol Sulf/Ipratropium 3 ML VIAL NEB ONE (12:45)
[2023-06-26 12:53] LABS: BASO # 0.1 10*3/uL (0.0-0.1); BASO % 0.8 % (0.0-1.0); EOS # 1.1 10*3/uL (0.0-0.4); EOS % 12.1 % (1.0-4.0); HEMATOCRIT 44.8 % (42.0-52.0); LYMPH # 2.1 10*3/uL (1.3-4.4); LYMPH % 23.2 % (27.0-41.0); MEAN CELL VOLUME 91.6 fl (80.0-94.0); MEAN CORPUSCULAR HGB CONC 30.6 g/dl (33.0-37.0); MEAN PLATELET VOLUME 9.9 fl (9.6-12.3); MONO % 10.8 % (3.0-9.0); NEUT # 4.7 10*3/uL (2.3-7.9); NEUT % 52.9 % (47.0-73.0); PLATELET COUNT AUTOMATED 232 10*3/uL (130-400); RED BLOOD COUNT 4.89 10*6/uL (4.50-5.90); RED CELL DISTRI WIDTH 14.7 % (0-14.5); WHITE BLOOD COUNT 8.9 10*3/uL (4.8-10.8)
[2023-06-26 13:16] LABS: BUN 20 mg/dl (9-23); CHLORIDE 101 mmol/L (98-107); POTASSIUM 4.4 mmol/L (3.4-5.1)
[2023-06-26] MEDS ORDERED: Ceftriaxone Sodium 1 GM/10 ML SYR IV ONE (14:00)
[2023-06-26] MEDS ORDERED: AZITHROMYCIN 250 ML IV ONE (14:00)
[2023-06-26 16:30] VITALS: BP 139/86
[2023-06-26] MEDS ORDERED: VENLAFAXINE HY150 M2 PO (17:58)
[2023-06-26] MEDS ORDERED: GLIMEPIRIDE4 M1 PO (18:00)
[2023-06-26] MEDS ORDERED: JARDIANCE10 MG PO (18:09)
[2023-06-26] MEDS ORDERED: PROAIR DIGIHAL90 MCG INH (18:13)
[2023-06-26] MEDS ORDERED: Albuterol Sulf/Ipratropium 3 ML VIAL NEB PRN (20:05)
[2023-06-26] MEDS ORDERED: DEXTROSE 10 % IN WATER 250 ML IV PRN (20:05)
[2023-06-26 21:44] VITALS: BP 135/71
[2023-06-26] MEDS ORDERED: clonAZEPAM 1 MG TAB PO SCH (22:00)
[2023-06-26] MEDS ORDERED: INSULIN REGULAR, HUMAN 1 UNIT/0.01 ML SC SCH (22:00)
[2023-06-26] MEDS ORDERED: Venlafaxine Hydrochloride 75 MG CAP PO SCH (22:00)
[2023-06-26] MEDS ORDERED: SIMVASTATIN 20 MG TAB PO SCH (22:00)
[2023-06-26] MEDS ORDERED: methylPREDNISolone sod succ 40 MG VIAL IV SCH (22:00)
[2023-06-26] MEDS ORDERED: GUAIFENESIN 600 MG TAB ER PO SCH (22:00)
[2023-06-26 23:42] VITALS: BP 145/85
[2023-06-27] MEDS ORDERED: GLIMEPIRIDE 2 MG TAB PO SCH (07:30)
[2023-06-27 08:00] VITALS: BP 148/94
[2023-06-27] MEDS ORDERED: busPIRone Hydrochloride 10 MG TAB PO SCH (08:00)
[2023-06-27] MEDS ORDERED: EMPAGLIFLOZIN 10 MG TABLET PO SCH (10:00)
[2023-06-27] MEDS ORDERED: METOPROLOL SUCCINATE XR 100 MG TAB PO SCH (10:00)
[2023-06-27] MEDS ORDERED: RIVAROXABAN 10 MG TAB PO SCH (10:00)
[2023-06-27] MEDS ORDERED: Losartan Potassium 50 MG TAB PO SCH (10:00)
[2023-06-27] MEDS ORDERED: ASPIRIN ENTERIC COATED 81 MG TAB PO SCH (10:00)
[2023-06-27 12:00] VITALS: BP 145/82
[2023-06-27] MEDS ORDERED: Ceftriaxone Sodium 1 GM in SYRINGE INFUSION 10 ML IV SCH (15:00)
[2023-06-27 16:00] VITALS: BP 154/75
[2023-06-27 20:00] VITALS: BP 144/57
[2023-06-28 08:00] VITALS: BP 150/81
[2023-06-28] MEDS ORDERED: clonAZEPAM 0.5 MG TAB PO PRN (08:28)
[2023-06-28 12:00] VITALS: BP 144/80
[2023-06-28] MEDS ORDERED: methylPREDNISolone sod succ 40 MG VIAL IV SCH (14:00)
[2023-06-28 16:00] VITALS: BP 154/82
[2023-06-28 20:00] VITALS: BP 150/82
[2023-06-29] VITALS: BP 158/84
[2023-06-29] MEDS ORDERED: Regadenoson 0.4 MG/5 ML SYR IV ONE (06:46)
[2023-06-29] MEDS ORDERED: Technetium Tc 99M Tetrofosmi 0.23 MG KIT IJ SCH (07:00)
[2023-06-29 08:00] VITALS: BP 140/60
[2023-06-29 12:00] VITALS: BP 122/68
[2023-06-29 14:00] VITALS: BP 138/62
[2023-06-29 20:00] VITALS: BP 140/88
[2023-06-30] VITALS: BP 161/80
[2023-06-30] MEDS ORDERED: DIGOXIN 500 MCG/2 ML AMP IV ONE ×2 (05:30→08:10)
[2023-06-30 08:00] VITALS: BP 117/83
[2023-06-30] MEDS ORDERED: Levalbuterol Hydrochloride 0.63 MG VIAL NEB SCH (08:04)
[2023-06-30] MEDS ORDERED: Diltiazem Hydrochloride 125 ML IV SCH (08:10)
[2023-06-30] MEDS ORDERED: DILTIAZEM HYDROCHLORIDE IV ONE (08:30)
[2023-06-30 12:00] VITALS: BP 133/82
[2023-06-30] MEDS ORDERED: Levalbuterol Hydrochloride 0.63 MG VIAL NEB ONE (14:24)
[2023-06-30 16:00] VITALS: BP 129/70
[2023-06-30] MEDS ORDERED: methylPREDNISolone sod succ 40 MG VIAL IV SCH (18:00)
[2023-06-30 20:00] VITALS: BP 154/77
[2023-07-01] VITALS: BP 154/90
[2023-07-01 08:00] VITALS: BP 152/81
[2023-07-01] MEDS ORDERED: PREDNISONE5 MG PO (08:18)
[2023-07-01] MEDS ORDERED: XARE15TA PO (08:18)
== END 2023-07-01 10:13 | disposition home or self-care (01) | DRG 189 ==
LOC: ED 12:12 → EDHOLD 15:11 → 4E 15:11
PROVIDERS: Internal Medicine; ADMIT Internal Medicine; ATTEND Internal Medicine
PROC: 4A02XM4 Measurement of Cardiac Total Activity, External Approach (ICD-10-PCS; principal; 2023-06-29)
PROC: 3E073KZ Introduction of Other Diagnostic Substance into Coronary Artery, Percutaneous Approach (ICD-10-PCS; 2023-06-29)
DX: J96.01 Acute respiratory failure with hypoxia (principal); J44.1 Chronic obstructive pulmonary disease with (acute) exacerbation; F33.9 Major depressive disorder, recurrent, unspecified; I10 Essential (primary) hypertension; I48.0 Paroxysmal atrial fibrillation; E11.9 Type 2 diabetes mellitus without complications; F41.1 Generalized anxiety disorder; I25.10 Atherosclerotic heart disease of native coronary artery without angina pectoris; G89.29 Other chronic pain; M54.50 Low back pain, unspecified; J20.9 Acute bronchitis, unspecified; F43.10 Post-traumatic stress disorder, unspecified; X58.XXXA Exposure to other specified factors, initial encounter; Y93.89 Activity, other specified; Y92.89 Other specified places as the place of occurrence of the external cause; Z90.49 Acquired absence of other specified parts of digestive tract; Z95.5 Presence of coronary angioplasty implant and graft; Z80.41 Family history of malignant neoplasm of ovary; Y99.8 Other external cause status

== ENCOUNTER → 2023-08-27 | Outpatient (CLI) | payer OTHER ==
[~2023-08-27] MED LIST changes: +GLIMEPIRIDE4 M1 PO; +JARDIANCE10 MG PO; +PREDNISONE5 MG PO; +PROAIR DIGIHAL90 MCG INH; +VENLAFAXINE HY150 M2 PO; +XARE15TA PO
[2023-08-27 11:09] LABS: ACT PARTIAL THROMBO TIME 34.8 SECONDS (20.0-32.1)
== END ==
LOC: LAB 10:19
PROVIDERS: ATTEND Urology
DX: Z01.812 Encounter for preprocedural laboratory examination (principal); J43.9 Emphysema, unspecified; I48.91 Unspecified atrial fibrillation; I25.10 Atherosclerotic heart disease of native coronary artery without angina pectoris

== ENCOUNTER → 2023-09-10 | Outpatient (CLI) | payer OTHER | END | disposition home or self-care (01) | LOC: RAD 10:55 | PROVIDERS: ATTEND Urology | DX: N20.0 Calculus of kidney (principal); I87.8 Other specified disorders of veins ==

== ENCOUNTER → 2023-09-26 | Outpatient (CLI) | payer OTHER ==
[2023-09-26 13:02] LABS: BASO % 0.4 % (0.0-1.0); EOS # 0.5 10*3/uL (0.0-0.4); EOS % 4.6 % (1.0-4.0); HEMATOCRIT 39.4 % (42.0-52.0); LYMPH % 20.6 % (27.0-41.0); MEAN CELL VOLUME 94.7 fl (80.0-94.0); MEAN CORPUSCULAR HGB 27.2 pg (27.0-31.0); MEAN CORPUSCULAR HGB CONC 28.7 g/dl (33.0-37.0); MEAN PLATELET VOLUME 9.2 fl (9.6-12.3); MONO # 0.9 10*3/uL (0.1-1.0); MONO % 9.6 % (3.0-9.0); NEUT # 6.3 10*3/uL (2.3-7.9); NEUT % 64.1 % (47.0-73.0); PLATELET COUNT AUTOMATED 233 10*3/uL (130-400); RED BLOOD COUNT 4.16 10*6/uL (4.50-5.90); RED CELL DISTRI WIDTH 17.3 % (0-14.5); WHITE BLOOD COUNT 9.8 10*3/uL (4.8-10.8)
[2023-09-26 13:06] LABS: BILIRUBIN Negative (Negative); BLOOD 3+ (Negative); CLARITY Clear (Clear); COLOR Yellow (Yellow); GLUCOSE 3+ (Negative); KETONE Negative (Negative); LEUKO ESTERASE Negative (Negative); NITRITE Negative (Negative); SPECIFIC GRAVITY >= 1.030 (1.001-1.030)
[2023-09-26 13:25] LABS: ALKALINE PHOSPHATASE 88 U/L (46-116); BUN 18 mg/dl (9-23); CHLORIDE 105 mmol/L (98-107); POTASSIUM 3.9 mmol/L (3.4-5.1); SGPT/ALT 12 U/L (5-49); THYROXINE (T4) TOTAL 7.2 ug/dl (4.5-10.9); TOTAL PROTEIN 6.9 gm/dL (6.0-8.0)
[2023-09-26 13:38] LABS: FINE GRANULAR CAST 0-2; MUCOUS TRACE
== END ==
LOC: LAB 12:01 → US 12:30
PROVIDERS: ATTEND Urology
DX: N20.0 Calculus of kidney (principal); N40.0 Benign prostatic hyperplasia without lower urinary tract symptoms

== ENCOUNTER → 2023-10-01 | Outpatient (CLI) | payer OTHER | END | disposition home or self-care (01) | LOC: LAB 12:59 | PROVIDERS: ATTEND Urology | DX: N20.0 Calculus of kidney (principal); E83.50 Unspecified disorder of calcium metabolism; R31.9 Hematuria, unspecified ==

== ENCOUNTER → 2023-12-28 | Outpatient (CLI) | payer OTHER | END | disposition home or self-care (01) | LOC: US 13:53 | PROVIDERS: ATTEND Internal Medicine | DX: I65.23 Occlusion and stenosis of bilateral carotid arteries (principal); R42 Dizziness and giddiness ==

== ENCOUNTER → 2023-12-31 | Outpatient (CLI) | payer OTHER | END | disposition home or self-care (01) | LOC: CT 12-27 08:00 | PROVIDERS: ATTEND Internal Medicine | DX: I67.82 Cerebral ischemia (principal); R51.9 Headache, unspecified ==

== ENCOUNTER → 2024-06-19 | Outpatient (CLI) | payer OTHER | END | disposition home or self-care (01) | LOC: US 00:25 | PROVIDERS: ATTEND Internal Medicine | DX: R60.9 Edema, unspecified (principal); R09.89 Other specified symptoms and signs involving the circulatory and respiratory systems ==

== ENCOUNTER 2024-09-04 11:03 | Emergency (ER) | payer OTHER ==
[~2024-09-04] VITALS: Ht 177.8 cm; Wt 81.6 kg
[~2024-09-04 11:03] MED LIST changes: -KLONOPIN0.5 MG PO; +KLONOPIN1 M1 PO
[2024-09-04] MEDS ORDERED: HYDROXYZINE HCL25 MG PO (11:39)
[2024-09-04 11:53] LABS: BASO # 0.1 10*3/uL (0.0-0.1); BASO % 0.8 % (0.0-1.0); EOS # 0.3 10*3/uL (0.0-0.4); EOS % 3.5 % (1.0-4.0); HEMATOCRIT 43.2 % (42.0-52.0); MEAN CELL VOLUME 90.9 fl (80.0-94.0); MEAN CORPUSCULAR HGB 26.7 pg (27.0-31.0); MEAN CORPUSCULAR HGB CONC 29.4 g/dl (33.0-37.0); MEAN PLATELET VOLUME 9.6 fl (9.6-12.3); MONO # 0.8 10*3/uL (0.1-1.0); MONO % 9.6 % (3.0-9.0); NEUT # 5.5 10*3/uL (2.3-7.9); NEUT % 64.3 % (47.0-73.0); PLATELET COUNT AUTOMATED 199 10*3/uL (130-400); RED BLOOD COUNT 4.75 10*6/uL (4.50-5.90); RED CELL DISTRI WIDTH 14.4 % (0-14.5); WHITE BLOOD COUNT 8.6 10*3/uL (4.8-10.8)
[2024-09-04] MEDS ORDERED: MIRTAZAPINE15 M2 PO (11:54)
[2024-09-04 12:17] LABS: BUN 17 mg/dl (9-23); CHLORIDE 101 mmol/L (98-107)
[2024-09-04 12:21] LABS: ETHYL ALCOHOL < 3.0 mg/dl (<3)
[2024-09-04] MEDS ORDERED: DONEPEZIL HYDROC5 MG PO (12:24)
[2024-09-04] MEDS ORDERED: JARDIANCE25 MG PO (12:26)
== END 2024-09-04 13:43 | disposition home or self-care (01) ==
LOC: ED 11:03
PROVIDERS: Emergency Medicine
DX: F43.10 Post-traumatic stress disorder, unspecified (principal); Z20.822 Contact with and (suspected) exposure to COVID-19; J44.9 Chronic obstructive pulmonary disease, unspecified; E11.9 Type 2 diabetes mellitus without complications; I10 Essential (primary) hypertension; E78.5 Hyperlipidemia, unspecified; I48.91 Unspecified atrial fibrillation; Z79.899 Other long term (current) drug therapy; Z79.82 Long term (current) use of aspirin; Z87.442 Personal history of urinary calculi; Z95.5 Presence of coronary angioplasty implant and graft; Z90.49 Acquired absence of other specified parts of digestive tract; Z87.891 Personal history of nicotine dependence

== ENCOUNTER 2024-09-29 18:51 | Emergency (ER) | payer OTHER ==
[~2024-09-29] VITALS: Ht 177.8 cm; Wt 75.7 kg
[~2024-09-29 18:51] MED LIST changes: +DONEPEZIL HYDROC5 MG PO; +HYDROXYZINE HCL25 MG PO; +JARDIANCE25 MG PO; +MIRTAZAPINE15 M2 PO
[2024-09-29] MEDS ORDERED: Ondansetron Hydrochloride 4 MG/2 ML VIAL IV ONE (21:45)
[2024-09-29] MEDS ORDERED: SODIUM CHLORIDE 0.9% 500 ML IV ONE (21:45)
[2024-09-29 21:58] LABS: BASO # 0.1 10*3/uL (0.0-0.1); BASO % 0.5 % (0.0-1.0); EOS # 0.2 10*3/uL (0.0-0.4); EOS % 2.2 % (1.0-4.0); MEAN CELL VOLUME 86.2 fl (80.0-94.0); MEAN CORPUSCULAR HGB 26.6 pg (27.0-31.0); MEAN PLATELET VOLUME 9.7 fl (9.6-12.3); MONO # 1.2 10*3/uL (0.1-1.0); MONO % 13.0 % (3.0-9.0); NEUT # 5.8 10*3/uL (2.3-7.9); NEUT % 63.2 % (47.0-73.0); NUCLEATED RED BLOOD CELL 0.0 % (0.0-0.0); NUCLEATED RED BLOOD CELL 0.0 10*3/uL (0.0-0.0); PLATELET COUNT AUTOMATED 248 10*3/uL (130-400); RED CELL DISTRI WIDTH 15.4 % (0-14.5)
[2024-09-29 22:16] LABS: BUN 24.0 mg/dl (9-23)
[2024-09-29] MEDS ORDERED: Ondansetron 4 MG 2 TAB ED PACK PO SCH (22:25)
[2024-09-29] MEDS ORDERED: IMODIUM A-D2 M2 PO (22:29)
[2024-09-29] MEDS ORDERED: Ondansetron4 MG PO (22:29)
== END 2024-09-29 23:30 | disposition home or self-care (01) ==
LOC: ED 18:51
PROVIDERS: Nurse Practitioner
DX: A08.4 Viral intestinal infection, unspecified (principal); F12.90 Cannabis use, unspecified, uncomplicated; F17.200 Nicotine dependence, unspecified, uncomplicated; I10 Essential (primary) hypertension; I25.10 Atherosclerotic heart disease of native coronary artery without angina pectoris; F32.A Depression, unspecified; F41.9 Anxiety disorder, unspecified; Z79.82 Long term (current) use of aspirin; Z79.899 Other long term (current) drug therapy; Z90.49 Acquired absence of other specified parts of digestive tract; Z98.890 Other specified postprocedural states

== ENCOUNTER 2024-11-02 19:30 | Emergency (ER) | payer OTHER ==
[~2024-11-02] VITALS: Ht 172.7 cm; Wt 81.6 kg
[~2024-11-02 19:30] MED LIST changes: +IMODIUM A-D2 M2 PO; +Ondansetron4 MG PO
[2024-11-02] MEDS ORDERED: Ondansetron Hydrochloride 4 MG/2 ML VIAL IV ONE (20:45)
[2024-11-02] MEDS ORDERED: PREDNISONE20 M1 PO (23:37)
[2024-11-02] MEDS ORDERED: METHOCARBAMOL500 M1 PO (23:37)
== END 2024-11-02 23:51 | disposition home or self-care (01) ==
LOC: ED 19:30
DX: S70.02XA Contusion of left hip, initial encounter (principal); S00.83XA Contusion of other part of head, initial encounter; F12.90 Cannabis use, unspecified, uncomplicated; F17.210 Nicotine dependence, cigarettes, uncomplicated; Z90.49 Acquired absence of other specified parts of digestive tract; Z95.5 Presence of coronary angioplasty implant and graft; Z98.890 Other specified postprocedural states; W54.1XXA Struck by dog, initial encounter; Y93.89 Activity, other specified; Y92.89 Other specified places as the place of occurrence of the external cause; Y99.8 Other external cause status